=== PATIENT | male | born 2005 | race Caucasian/White ===

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

== ENCOUNTER 2024-02-17 18:00 | Emergency (ER) | payer OTHER, SELFPAY ==
[2024-02-17 18:12] VITALS: BP 142/66; PULSE 101; RESP 18; TEMP 36.4; O2SAT 100
--- NOTE | 2024-02-17 18:26 | ED.GENADULT ---
HPI - General Adult General Chief complaint: Neck Pain/Injury Stated complaint: Neck Swelling Time Seen by Provider: 02/17/24 18:18 Source: patient and RN notes reviewed Mode of arrival: ambulatory Limitations: no limitations History of Present Illness HPI narrative: Patient presents today complaining of swelling of his thyroid gland. States that a thyroid cyst was found incidentally on a next xray approx 1 year ago. Reports that over the last 3 days he has felt that the cyst is growing. Denies shortness of breath or difficulty swallowing. Denies recent illness. Related Data Home Medications Medication Instructions Recorded Confirmed bupropion HCl 300 mg 24 hr tablet, 300 mg PO DAILY 02/17/24 02/17/24 extended release clonidine HCl 0.2 mg tablet 0.2 mg PO DAILY 02/17/24 02/17/24 lisdexamfetamine 40 mg capsule 40 mg PO DAILY 02/17/24 02/17/24 (Vyvanse) Allergies Allergy/AdvReac Type Severity Reaction Status Date / Time Penicillins AdvReac Mild Hives Verified 02/17/24 18:02 Review of Systems Review of Systems: CONSTITUTIONAL: Denies body aches, fever, chills, or sweats. EYES: Denies visual changes, redness, or discharge. ENT: Denies rhinorrhea, congestion, sore throat, or otalgia. +growing thyroid gland CARDIOVASCULAR: Denies chest pain, palpitations, or edema. RESPIRATORY: Denies cough or dyspnea. GASTROINTESTINAL: Denies abdominal pain, nausea, vomiting, or diarrhea. GENITOURINARY: Denies dysuria or hematuria. SKIN: Denies rash, itching, or wounds. MUSCULOSKELETAL: Denies back pain, joint pain, or myalgia. NEUROLOGIC: Denies headache, numbness, tingling, or weakness. PSYCH: Denies depression or anxiety. PMFSH Comments At time of signature, I have reviewed and agree with nursing past medical, surgical, social and family history unless otherwise noted. Please see nursing chart for further information. There is no relevant family history pertinent to the presenting complaint Exam Narrative: GENERAL: Well-appearing, well-nourished, and in no acute distress. HEAD: Normocephalic, atraumatic. EYES: EOMI. No redness or drainage. Conjunctivae normal. ENT: Mucous membranes pink and moist. Throat normal. Uvula midline. NECK: Normal AROM. Supple. No lymphadenopathy. Mild tenderness to the left thyroid area. CHEST: No respiratory distress. EXTREMITIES: Normal range of motion. No edema. SKIN: Warm, dry, no rash. Capillary refill normal. Normal skin turgor. NEURO: No focal deficits. Alert and oriented x3. Gait steady. PSYCH: Normal affect. No signs of depression or anxiety. Course Course Level of Care: Express Care Visit Vital Signs Vital signs: Vital Signs Temperature 97.5 F L 02/17/24 18:12 Pulse Rate 101 H 02/17/24 18:12 Respiratory Rate 18 02/17/24 18:12 Blood Pressure 142/66 H 02/17/24 18:12 Pulse Oximetry 100 02/17/24 18:12 Oxygen Delivery Room Air 02/17/24 18:12 Temperature 97.5 F L 02/17/24 18:12 Pulse Rate 101 H 02/17/24 18:12 Respiratory Rate 18 02/17/24 18:12 Blood Pressure 142/66 H 02/17/24 18:12 Pulse Oximetry 100 02/17/24 18:12 Oxygen Delivery Room Air 02/17/24 18:12 Reviewed Medical Decision Making MDM Narrative Medical decision making narrative: Recommend patient call his PCP and schedule a follow-up visit for possible ultrasound/blood work. Anticipatory guidance given. Differential Diagnosis Differential Diagnosis: thyroid cyst, hyperthyroidism, hypothyroidism Vital Signs Vital Signs: Vital Signs Temperature 97.5 F L 02/17/24 18:12 Pulse Rate 101 H 02/17/24 18:12 Respiratory Rate 18 02/17/24 18:12 Blood Pressure 142/66 H 02/17/24 18:12 Pulse Oximetry 100 02/17/24 18:12 Oxygen Delivery Room Air 02/17/24 18:12 Temperature 97.5 F L 02/17/24 18:12 Pulse Rate 101 H 02/17/24 18:12 Respiratory Rate 18 02/17/24 18:12 Blood Pressure 142/66 H 02/17/24 18:12 Pulse Oximetry 100 02/17/24 18:12
== END 2024-02-17 18:28 | disposition home or self-care (01) ==
PROVIDERS: Emergency Provider Nurse Practitioner
DX: E07.9 Disorder of thyroid, unspecified (principal); F90.9 Attention-deficit hyperactivity disorder, unspecified type; F41.9 Anxiety disorder, unspecified; F32.A Depression, unspecified
CPT/HCPCS: 99211; G0463

== ENCOUNTER 2024-11-12 06:37 | Outpatient (CLI) | payer OTHER, SELFPAY ==
--- NOTE | ~2024-11-12 | CT_ITS ---
EXAMINATION: CT soft tissue neck w con DATE: 11/12/2024 07:54 INDICATION: Thyroglossal duct cyst. TECHNIQUE: Computed tomography (CT) of the neck was performed with 75 mL Omnipaque-350 intravenous co ntrast. Automated exposure control and iterative reconstruction technique were employed. The dose-joe gth product was 540.29 mGy-cm. COMPARISON: None FINDINGS: There are no pathologically enlarged lymph nodes. The cervical carotid arteries and vertebr al arteries are normal. The thyroid is normal. There is a 15 x 9 mm mass anterior to the thyroid cart ilage at the midline and involving the left strap muscles that is hypodense to muscle. There is kypho sis of cervical spine. IMPRESSION: 1. 15 x 9 mm mass anterior to the thyroid cartilage at the midline and involving the left strap muscl es, consistent with a thyroglossal duct cyst. Reviewed, dictated and finalized at location A. ATIONAL RESOURCE COORDINATOR IMPRESSION: 1. 15 x 9 mm mass anterior to the thyroid cartilage at the midline and involvin g the left strap muscles, consistent with a thyroglossal duct cyst.
--- OUTSIDE RECORDS SUMMARY | 2024-11-19 06:13 | XMS_ITS | Clinical Summary ---
Author Organization [facility] Address [address] [place] [address]. [place] [address] [place] [address] Care Team Providers Care Department Chair Name Role Phone Toney Mccracken MD Primary Care Provider [phone] Allergies Active Allergy Reactions Criticality Noted Date Comments Penicillins Hives Medium 07/05/2017 Young child Medications Vitamin D-3 125 mcg TabIndications:Lo w vitamin D level Take 1 tablet (125 mcg total) by mouth daily. 30 tablet 11 4 Active cloNIDine (CATAPRES) 0.2 MG tabletIndications :Attention deficit disorder (ADD) without hyperactivity Take 1 tablet (0.2 mg total) by mouth nightly as needed. 90 tablet 3 4 Active buPROPion XL (WELLBUTRIN XL) 300 MG 24 hr tabletIndications :Annual physical exam Take 1 tablet (300 mg total) by mouth every morning. 30 tablet 11 4 Active acetaminophen (TYLENOL) 325 MG tablet Take 2 tablets (650 mg total) by mouth every 6 (six) hours as needed for Pain. 30 tablet 5 11/22/19 25 Active traMADol (ULTRAM) 50 MG tabletIndications :Acute Pain < 7 Day Supply Take 1 tablet (50 mg total) by mouth every 6 (six) hours as needed for Pain (significan t pain). Indications : Acute Pain < 7 Day Supply 24 tablet 5 11/21/19 25 Active clindamycin (CLEOCIN) 300 MG capsule Take 1 capsule (300 mg total) by mouth 3 (three) times daily for 7 days. 21 capsule 5 11/22/19 25 Active docusate sodium (COLACE) 100 MG capsule Take 1 capsule (100 mg total) by mouth daily for 6 days. 6 capsule 5 11/21/19 25 Active lisdexamfetamine (VYVANSE) 40 MG capsuleIndication s:Attention deficit disorder (ADD) without hyperactivity Take 1 capsule (40 mg total) by mouth every morning. Patient may have either generic or brand 30 capsule 4 11/08/20 24 Discontinu ed(Error) Active Problems No known active problems Encounters Date Type Department Care Team Description 11/15/2024 10:47 AM LABOR ARBITRATOR Anesthesia Event [facility] [place] [address] Taniya Watson MD Jarvis, Brittany L, AUTOMATED MANUFACTURING INSTRUCTOR 11/15/2024 10:10 AM LABOR ARBITRATOR - 11/15/2024 12:30 PM LABOR ARBITRATOR Surgery [facility] [place] [address] Delfin Holguin MD EXCISION OF THYROGLOSSAL DUCT CYST 11/15/2024 8:00 AM LABOR ARBITRATOR - 11/15/2024 4:10 PM LABOR ARBITRATOR Hospital Encounter [facility] [place] [address] Delfin Holguin MD Discharge Disposition: Home or Self Care (Routine Discharge) 11/15/2024 Travel 11/13/2024 Travel 11/08/2024 Travel from Last 3 Months Immunizations Name Administration Dates Next Due Afluria 6-35 months (pre-jean led syringe IIV4) 08/30/2019 DTaP (Daptacel) 01/03/2010, 6,05/19/2005,03/17,01/14/2005 HPV GARDASIL 9-VALENT 08/23/2018 HPV4 (Gardasil) 03/02/2019 Hepatitis A (Havrix 1440 El.U) 02/24/2007,2005 Hepatitis B (Generic: Adult) 05/19/2005,03/17/20 05,01/14/2005 Hib (PedvaxHIB)3 Dose 06/15/2006,03/17/2005,03/01/2005 Influenza (Generic) 08/25/2020,07/26/2014,2008 Influenza Adult (Generic) 09/12/2022,,08/17/2020,08/23,09/02/2017 MMR (MMRII) 01/03/2010,11/22/2005 Meningococcal (MenQuadfi) 11/04/2021 Meningococcal (Menactra) 07/05/2016 Pneumococcal (Prevnar 13) 11/22/2005,04/2005,03/17/2005,01/14 Polio IPV (Ipol) 01/03/2010, 5,03/17/2005,01/14 Tdap (Generic) 07/05/2016 Varicella (Varivax) 01/03/2010,11/22/2005 Social History Tobacco Use Types Packs/Day Years Used Date Smoking Tobacco: Never Passive Smoke Exposure: Never Smokeless Tobacco: Never Tobacco Cessation:Counseling Given: No Alcohol Use Standard Drinks/Week Comments Never 0 (1 standard drink = 0.6 oz pur e alcohol) PHQ-2 Answer Date Recorded Patient Health Questionnaire-2 Score 3 04/16/2024 Sex and Gender Information Value Date Recorded Sex Assigned at Not on file Legal Sex Male 6:56 PM CDT Gender Identity Not on file Sexual Orientation Not on file Last Filed Vital Signs Vital Sign Reading Time Taken Comments Blood Pressure 126/69 11/15/2024 4:00 PM LABOR ARBITRATOR Pulse 92 11/15/2024 4:00 PM LABOR ARBITRATOR Temperature 36.7 ??C (98.1 ??F) 11/15/2024 4:00 PM CS T Respiratory Rate 16 11/15/2024 4:00 PM LABOR ARBITRATOR Oxygen Saturation 98% 11/15/2024 4:00 PM LABOR ARBITRATOR Inhaled Oxygen Concentration - - Weight 91.4 kg (201 lb 8 oz) 11/15/2024 8:20 AM LABOR ARBITRATOR Height 180.3 cm (5' 11 ) 11/08/2024 2:25 PM LABOR ARBITRATOR Body Mass Index 28.1 11/08/2024 2:25 PM LABOR ARBITRATOR Plan of Treatment Health Maintenance Due Date Last Done Comments COVID-19 Vaccine ( season) 2024 10/25/2021, 03/08/2021, 02/13/2021 Influenza Adult (#1) 2024 09/12/2022, 08/08/2021, 08/25/2020, Additional history exists Annual Physical 04/16/2025 04/16/2024, 01/12/2023 DTaP, Tdap and Td Vaccines (7 - Td or Tdap) 07/05/2026 07/05/2016, 01/03/2010, 06/15/2006, Additional history exists Hepatitis B Vaccines Completed 05/19/2005, 03/17/2005, 01/14/2005 Pneumococcal Vaccine: Pediatrics (0 to 5 Years) and At-Risk Patients (6 to 64 Years) Completed 11/22/2005, 05/19/2005, 03/17/2005, Additional history exists HPV Vaccines Completed 03/02/2019, 08/23/2018 Meningococcal Vaccine Completed 11/04/2021, 016 Hepatitis C Completed 04/16/2024 RSV Immunizations Under 20 Months Aged Out No longer eligible based on patient's age to complete this topic Procedures Procedure Name Priority Date/Time Associated Diagnosis Comments EXCISION THYROGLOSSAL DUCT CYST 11/15/2024 10:47 AM LABOR ARBITRATOR THYROGLOSSAL DUCT CYTS Q89.2 Case Notes SCHED BY FAX 10/22/2024 LCS PHONE ASSESS PATHOLOGY Routine 11/15/2024 12:00 AM LABOR ARBITRATOR HEPATITIS C ANTIBODY Routine 04/16/2024 1:09 PM CDT Attention deficit disorder (ADD) without hyperactivity Annual physical exam Neck pain Thyroglossal duct cyst from Last 3 Months or Most Recently Relevant to Health Maintenance Results * HEPATITIS C ANTIBODY (04/16/2024 1:09 PM CDT) HEPATITIS C AB NON-REACTI VE NON-REACT BECKY 04/16/2024 9:55 PM CDT [facility] Comment: ANTIBODIES TO HCV NOT DETECTED. DOES NOT EXCLUDE THE POSSIBILITY OF EXPOSURE TO HCV. 04/16/2024 1:09 PM CDT Toney Mccracken MD LABORATORY Final Result [facility] [address] [place] [address], [place] [phone] [id number] from Last 3 Months or Most Recently Relevant to Health Maintenance Insurance GENERIC - COMMERCIAL Care Teams Department Chair Relationship Specialty Start Date End Date Toney Mccracken MD [address] [address] PCP - General FAMILY PRACTICE 12/20/22
--- OUTSIDE RECORDS SUMMARY | 2024-11-19 06:13 | XMS_ITS | Encounter Summary ---
Author Organization [facility] Address [address] [place] [address]. [place], [place] [id number] [place] [id number] Care Team Providers Care Donation Worker Name Role Phone Toney Martinez MD Primary Care Provider [phone] Reason for Referral * Imaging (Routine) - Closed Specialty Diagnoses / Procedures Referred By Makenzie moya Referred To Contact RADIOLOGY Diagnoses Thyroglossal duct cyst Procedures US SOFT TISS HEAD OR NECK US SOFT TISS NECK BX Toney Martinez MD [address] '[place] [address] Phone: tel:[phone] fax: Referral ID Status Reason Start Date Expiration Date Visits Re quested Visits Authorized [id number] Closed 02/20/2024 02/19/2025 1 1 Encounter Details Date Type Department Care Team (Late st Contact Info) Description 02/20/2024 Orders Only [facility] Family [facility] - [place] [address] [place] [address] Toney Martinez MD [address] '[place] [address] Social History Tobacco Use Types Packs/Day Years Used Date Smoking Tobacco: Never Smokeless Tobacco: Never Alcohol Use Standard Drinks/Week Comments Never 0 (1 standard drink = 0.6 oz pur e alcohol) PHQ-2 Answer Date Recorded Patient Health Questionnaire-2 Score 1 04/15/2023 Sex and Gender Information Value Date Recorded Sex Assigned at Not on file Legal Sex Male 6:56 PM CDT Gender Identity Not on file Sexual Orientation Not on file documented as of this encounter Plan of Treatment Not on file documented as of this encounter Results * US SOFT TISS HEAD OR NECK (03/26/2024 7:37 AM CDT) Anatomical Region Laterality Modality Head, Neck Ultrasound 03/26/2024 11:3 8 AM CDT Impressions 03/26/2024 11:50 AM CDT IMPRESSION: Thyroglossal duct cyst is approximately 1.1 x 1.6 x 3.4 cm on current sonogram with low-level internal echoes and single thin septation. On 2022 MRI, it is approximately 1.3 x 1.5 x 3.4 cm. Ordered By: TONEY MARTINEZ Interpreted By: Trevin Perez, 03/26/2024 11:38 AM Narrative 03/26/2024 11:50 AM CDT IMAGING STUDIES: US SOFT TISS HEAD OR NECK ? DATE: ??03/26/2024 7:04 AM HISTORY: ??Thyroglossal cyst follow up ? 18-year-old male. Thyroglossal cyst. Follow-up. COMPARISON: ??MRI cervical spine without contrast 05/13/2023. DISCUSSION: Targeted ultrasound of the superior anterior neck. It is reportedly palpable. Hypoechoic lesion at midline in the anterior superior neck is 1.1 cm AP by 1.6 cm transverse by at least 3.4 cm craniocaudal dimension consistent with a history of thyroglossal duct cyst. Low level echoes and thin septation. On MRI 05/13/2023, it is approximately 1.3 cm AP by 1.5 cm transverse dimension on axial image 21 series 5 and approximately 1 cm AP by 3.4 cm craniocaudal dimension on sagittal image 7 series 6. Superior and toward the left of the aforementioned lesion is an approximately 6 x 5.6 x 3.7 mm hypoechoic lesion with no internal echoes and likely a cyst. Slightly deeper and toward the right is a 4.1 mm cystic lesion. Procedure Note Trevin Perez MD - 03/26/2024 IMAGING STUDIES: US SOFT TISS HEAD OR NECKDATE: 03/26/2024 7:04 AM HISTORY: Thyroglossal cyst follow up 18-year-old male. Thyroglossalcyst. Follow- up. COMPARISON: MRI cervical spine without contrast 05/13/2023. DISCUSSION: Targeted ultrasound of the superior anterior neck. It is reportedlypalpable. Hypoechoic lesion at midline in the anterior superior neck is 1.1 cm AP by1.6 cm transverse by at least 3.4 cm craniocaudal dimension consistentwith a history of thyroglossal duct cyst. Low level echoes and thinseptation. On MRI 05/13/2023, it is approximately 1.3 cm AP by 1.5 cm transversedimension on axial image 21 series 5 and approximately 1 cm AP by 3.4 cmcraniocaudal dimension on sagittal image 7 series 6. Superior and toward the left of the aforementioned lesion is anapproximately 6 x 5.6 x 3.7 mm hypoechoic lesion with no internal echoesand likely a cyst. Slightly deeper and toward the right is a 4.1 mm cysticlesion. IMPRESSION: Thyroglossal duct cyst is approximately 1.1 x 1.6 x 3.4 cm on currentsonogram with low-level internal echoes and single thin septation. On 2022MRI, it is approximately 1.3 x 1.5 x 3.4 cm. 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
--- OUTSIDE RECORDS SUMMARY | 2024-11-19 06:13 | XMS_ITS | Encounter Summary ---
Author Organization [facility] Address [address] [place] [address]. [place], [place] [address] [place] [address] Care Team Providers Care Voltage Inspector Name Role Phone Toney Mccracken MD Primary Care Provider [phone] Reason for Visit * Reason Comments Follow Up Vyvanse f/u, working well aside from GI issues, Clonidine working well too Encounter Details Date Type Department Care Team (Late st Contact Info) Description 01/21/2023 12:40 PM WASHER CARCASS Office Visit [facility] Family and Sports Medicine - [place] [address] [place] [address] Toney Mccracken MD [address] [facility] [address] [place] [address] Follow Up (Vyvanse f/u, working well aside from GI issues, Clonidine working well too) Social History Tobacco Use Types Packs/Day Years Used Date Smoking Tobacco: Never Smokeless Tobacco: Never Tobacco Cessation:Counseling Given: No Alcohol Use Standard Drinks/Week Comments Never 0 (1 standard drink = 0.6 oz pur e alcohol) PHQ-2 Answer Date Recorded Patient Health Questionnaire-2 Score 4 01/12/2023 Sex and Gender Information Value Date Recorded Sex Assigned at Not on file Legal Sex Male 6:56 PM CDT Gender Identity Not on file Sexual Orientation Not on file COVID-19 Exposure Response Date Recorded In the last 10 days, have yo u been in contact with someone who was confirmed or suspected to have Coronavirus/COVID-19? No / Unsure 01/21/2023 12:12 PM WASHER CARCASS documented as of this encounter Last Filed Vital Signs Vital Sign Reading Time Taken Comments Blood Pressure 123/86 01/21/2023 12:31 PM WASHER CARCASS Pulse 103 01/21/2023 12:31 PM WASHER CARCASS Temperature 36.7 ??C (98.1 ??F) 01/21/2023 12:[address] Respiratory Rate 16 01/21/2023 12:31 PM WASHER CARCASS Oxygen Saturation 100% 01/21/2023 12:31 PM WASHER CARCASS Inhaled Oxygen Concentration - - Weight 88 kg (194 lb) 01/21/2023 12:31 PM WASHER CARCASS Height 175.3 cm (5' 9 ) 01/21/2023 12:31 PM WASHER CARCASS Body Mass Index 28.65 01/21/2023 12:31 PM WASHER CARCASS Body Mass Index Percentile 94.30% 01/21/2023 12: 31 PM WASHER CARCASS Growth Chart: [facility] (Boys, 2-2 0 Years) documented in this encounter Progress Notes * Toney Mccracken MD - 01/21/2023 12:40 PM CST Images from the original note were not included. Primary and Specialty Care Taj Encounter Date: 01/21/2023 Reason for visit: Follow Up (Vyvanse f/u, working well aside from GI issues, Clonidine working well too) History of Present Illness: Reji Strange is a 17-year-old male with ADHD, predominantly inattentive type who is here today for a medication recheck. The patient feels that the current medication is working well. The patient has the following concerns: none. The patient is compliant with medication(s). ADHD (chronic condition)- Pt currently takes Vyvanse 50mg qd. Pt denies any new side effects and reports compliance with this regimen. Pt states this regimen is working well for them. Pt denies any SI/HI/AH/VH. Insomnia (chronic condition)- Pt currently takes no medication. Pt states he has been tossing and turning so bad he hardly sleeps. Pt states he is not big on caffeine and tries not drink it at night.No other factors at this time. Patient denies having any fever, chills, N/V/D, CP, SOB and all other medical complaint at this time. SHx pt is a nonsmoker of cigarettes. Review of Systems Constitutional: Negative for chills and fever. HENT: Negative for congestion and sore throat. Eyes: Negative for pain and visual disturbance. Cardiovascular: Negative for chest pain and leg swelling. Respiratory: Negative for cough and shortness of breath. Endocrine: Negative for polydipsia and polyuria. Skin: Negative for itching and rash. Musculoskeletal: Negative for joint swelling and muscle cramps. Gastrointestinal: Negative for constipation and diarrhea. Genitourinary: Negative for bladder incontinence and dysuria. Neurological: Negative for difficulty with concentration and dizziness. Psychiatric/Behavioral: Negative for hallucinations and memory loss. +ADHD Medical History: History reviewed. No pertinent past medical history. Surgical History: History reviewed. No pertinent surgical history. Family History: No family history on file. Social History: Social History Socioeconomic History ??? Marital status: Unknown Tobacco Use ??? Smoking status: Never ??? Smokeless tobacco: Never Vaping Use ??? Vaping Use: Never used Substance and Sexual Activity ??? Alcohol use: Never ??? Drug use: Never Medications: Current Outpatient Medications: ??? buPROPion XL (WELLBUTRIN XL) 300 MG 24 hr tablet, , Disp: , Rfl: ??? cloNIDine (CATAPRES) 0.2 MG tablet, Take 1 tablet (0.2 mg total) by mouth nightly as needed., Disp: 30 tablet, Rfl: 5 ??? lisdexamfetamine (VYVANSE) 30 MG capsule, Take 1 capsule (30 mg total) by mouth every morning.,Disp: 30 capsule, Rfl: 0 Allergies: Allergies Allergen Reactions ??? Penicillins Hives Young child Vitals: Filed Vitals: 01/21/23 1231 BP: 123/86 Pulse: (!) 103 Resp: 16 Temp: 98.1 ??F (36.7 ??C) SpO2: 100% Weight: 88 kg (194 lb) Height: 5' 9 (1.753 m) Body mass index is 28.65 kg/m??. Physical Exam Constitutional: Appearance: Normal appearance. HENT: Head: Normocephalic and atraumatic. Right Ear: External ear normal. Left Ear: External ear normal. Nose: Nose normal. Eyes: Extraocular Movements: Extraocular movements intact. Conjunctiva/sclera: Conjunctivae normal. Cardiovascular: Rate and Rhythm: Normal rate and regular rhythm. Pulmonary: Effort: Pulmonary effort is normal. Breath sounds: Normal breath sounds. Abdominal: General: Abdomen is flat. Musculoskeletal: General: Normal range of motion. Cervical back: Normal range of motion and neck supple. Skin: General: Skin is warm and dry. Neurological: Mental Status: She is alert and oriented to person, place, and time. Gait: Gait normal. Psychiatric: Behavior: Behavior normal. Thought Content: Thought content normal. Diagnoses/Impression: Encounter Diagnose(s) ICD-10-CM ICD-9-CM SNOMED CT(R) 1. Attention deficit disorder (ADD) without hyperactivity F98.8 314.00 ATTENTION DEFICIT HYPERACTIVITY DISORDER, PREDOMINANTLY INATTENTIVE TYPE Patient is well controlled on current dose of medication and has no problems with insomnia, decreased appetite, increased anxiety or motor tics. They may have 2 refills prior to their next appointment in 3 months. Recommendations and Plan: He will continue his current medications. Renewal given as per [facility]. He will follow-up in 3 months,sooner if any problems. In compliance with Act 266, I have researched the ePDMP and have found no concerning issues. The patient was educated on the importance of adhering to treatment regimen in terms of their controlled substance and they have been counseled on the proper disposal of unused medication. I personally spent a total of 30 minutes on the day of the encounter. This includes [id number]-ov-[id number] and erw-vfyj-la-face time I provided on the day of the encounter & excludes time spent performing separately reportable services. TONEY MCCRACKEN MD 01/21/2023 ER CARCASS documented in this encounter Plan of Treatment Not on file documented as of this encounter Visit Diagnoses Diagnosis Attention deficit disorder (ADD) without hyperactivity- Primary documented in this encounter Additional Health Concerns Assessment Noted Time PHQ-9 Depression Total Score: 16 023 1:00 PM WASHER CARCASS documented as of this encounter Care Teams Voltage Inspector Relationship Specialty Start Date End Date Toney Mccracken MD [address] [address] PCP - General FAMILY PRACTICE 12/20/22 documented as of this encounter
--- OUTSIDE RECORDS SUMMARY | 2024-11-19 06:13 | XMS_ITS | Encounter Summary ---
Author Organization [facility] Address [address] [place] [address]. [place], [place] [address] [place] [address] Care Team Providers Care Pharmacy Consultant Name Role Phone Toney Mccracken MD Primary Care Provider [phone] Encounter Details Date Type Department Care Team (Late st Contact Info) Description 04/16/2024 1:00 PM CDT Laboratory Only [facility] Family and Sports Medicine - [place] [address] [place] [address] Toney Mccracken MD [address] [address] Social History Tobacco Use Types Packs/Day Years Used Date Smoking Tobacco: Never Passive Smoke Exposure: Never Smokeless Tobacco: Never Alcohol Use Standard [...] on file documented as of this encounter Progress Notes * Arin Tracey - 04/16/2024 1:00 PM CDTAddended by: ARIN TRACEY on: 04/16/2024 07:24 PM Modules accepted: Orders documented in this encounter Plan of Treatment Not on file documented as of this encounter Procedures Procedure Name Priority Date/Time Associated Diagnosis Comments TSH W/REFLEX Routine 04/16/2024 1:09 PM CDT Attention deficit disorder (ADD) without hyperactivity Annual physical exam Neck pain Thyroglossal duct cyst THYROID PEROXIDASE ANTIBODY Routine 04/16/2024 1:09 PM CDT Attention deficit disorder (ADD) without hyperactivity Annual physical exam Neck pain Thyroglossal duct cyst COMPREHENSIVE METABOLIC PANEL Routine 04/16/2024 1:09 PM CDT Attention deficit disorder (ADD) without hyperactivity Annual physical exam Neck pain Thyroglossal duct cyst LIPID PANEL Routine 04/16/2024 1:09 PM CDT Attention deficit disorder (ADD) without hyperactivity Annual physical exam Neck pain Thyroglossal duct cyst HEPATITIS C ANTIBODY Routine 04/16/2024 1:09 PM CDT Attention deficit disorder (ADD) without hyperactivity Annual physical exam Neck pain Thyroglossal duct cyst CBC W/DIFF AUTOMATED Routine 04/16/2024 1:09 PM CDT Attention deficit disorder (ADD) without hyperactivity Annual physical exam Neck pain Thyroglossal duct cyst THYROXINE, FREE (FT4) Routine 04/16/2024 1:09 PM CDT Attention deficit disorder (ADD) without hyperactivity Annual physical exam Neck pain Thyroglossal duct cyst VITAMIN D, 25 OH Routine 04/16/2024 1:09 PM CDT Attention deficit disorder (ADD) without hyperactivity Annual physical exam Neck pain Thyroglossal duct cyst THYROGLOBULIN PANEL Routine 04/16/2024 1 :08 PM CDT Annual physical exam Attention deficit disorder (ADD) without hyperactivity Neck pain Thyroglossal duct cyst TRIIODOTHYRONINE TOTAL , TT-3 Routine 04/16/2024 1:08 PM CDT Attention deficit disorder (ADD) without hyperactivity Annual physical exam Neck pain Thyroglossal duct cyst COLLECTION VENOUS BLOOD VENIPUNCTURE Routine 04/16/2024 1:07 PM CDT Annual physical exam documented in this encounter Results * (ABNORMAL) CBC W/DIFF AUTOMATED (04/16/2024 1:09 PM CDT) [facility] WBC 4.18 4.00 - 10.80 x10'3/uL 04/16/2024 8:21 PM CDT [facility] RBC 5.00 4.50 - 6.10 x10'6/uL 04/16/2024 8:21 PM CDT [facility] HGB 14.7 13.0 - 18.0 G/DL 04/16/2024 8:21 PM CDT [facility] HCT 44.1 37.0 - 52.0 % 04/16/2024 8:21 PM CDT [facility] MCV 88.2 78.0 - 100.0 FL 04/16/2024 8:21 PM CDT [facility] MCH 29.4 27.0 - 31.0 PG 04/16/2024 8:21 PM CDT [facility] MCHC 33.3 33.0 - 36.0 G/DL 04/16/2024 8:21 PM CDT [facility] RDW 11.6 11.5 - 14.5 % 04/16/2024 8:21 PM CDT [facility] PLT 202 150 - 350 x10'3/uL 04/16/2024 8:21 PM CDT [facility] MPV 11.5(H) 7.4 - 10.4 FL 04/16/2024 8:21 PM CDT [facility] DIFFERENTIAL TYPE AUTOMATED DIFFERENTIAL 04/16/2024 8:21 PM CDT [facility] NEUTROPHILS % 51.6 % 04/16/2024 8:21 PM CDT [facility] LYMPHOCYTES % 38.0 % 04/16/2024 8:21 PM CDT [facility] MONOCYTES % 8.6 % 04/16/2024 8:21 PM CDT [facility] EOSINOPHILS % 1.4 % 04/16/2024 8:21 PM CDT [facility] BASOPHILS % 0.2 % 04/16/2024 8:21 PM CDT [facility] IMMATURE GRANS % 0.2 % 04/16/2024 8:21 PM CDT [facility] ABS. NEUTROPHILS 2.15 1.60 - 8.30 x10'3/uL 04/16/2024 8:21 PM CDT [facility] ABS. LYMPHOCYTES 1.59 0.80 - 4.70 x10'3/uL 04/16/2024 8:21 PM CDT [facility] ABS. MONOCYTES 0.36 0.00 - 1.50 x10'3/uL 04/16/2024 8:21 PM CDT [facility] ABS. EOSINOPHILS 0.06 0.00 - 0.40 x10'3/uL 04/16/2024 8:21 PM CDT [facility] ABS. BASOPHILS 0.01 0.00 - 0.20 x10'3/uL 04/16/2024 8:21 PM CDT [facility] ABS. IMMATURE GRANULOCYTES 0.01 0.00 - 0.03 x10'3/uL 04/16/2024 8:21 PM CDT [facility] 04/16/2024 1:09 PM CDT us Toney Mccracken MD LABORATORY Final Result [facility] [address] [place] [address], [place] [phone] * (ABNORMAL) COMPREHENSIVE METABOLIC PANEL (04/16/2024 1:09 PM CDT) SODIUM S/P/B 143 136 - 145 MMOL/L 04/17/2024 1:16 PM T [facility] POTASSIUM S/P/B 4.2 3.5 - 5.1 MMOL/L 04/17/2024 1:16 PM T [facility] CHLORIDE S/P/B 104 98 - 107 MMOL/L 04/17/2024 1:16 PM CDT [facility] CO2 27.7 21 - 32 MMOL/L 04/17/2024 1:16 PM CDT [facility] GLUCOSE 50(L) 70 - 99 MG/DL 04/17/2024 1:16 PM T [facility] Comment:RESULT VERIFIED BUN 14 7 - 18 MG/DL 04/17/2024 1:16 PM T [facility] CREATININE S/P/B 0.80 0.70 - 1.30 MG/DL 04/17/2024 1:16 PM T [facility] CALCIUM S/P/B 9.6 8.4 - 10.5 MG/DL 04/17/2024 1:16 PM T [facility] BILIRUBIN TOTAL S/P/B 1.3(H) 0.2 - 1.0 MG/DL 04/17/2024 1:16 PM T [facility] ALKALINE PHOSPHATASE S/P/B 62 45 - 115 U/L 04/17/2024 1:16 PM CDT [facility] AST 10(L) 15 - 37 U/L 04/17/2024 1:16 PM CDT [facility] ALT 25 16 - 63 U/L 04/17/2024 1:16 PM CDT [facility] TOTAL PROTEIN S/P/B 8.1 6.4 - 8.2 G/DL 04/17/2024 1:16 PM CDT [facility] ALBUMIN S/P/B 4.8 3.4 - 5.0 G/DL 04/17/2024 1:16 PM CDT [facility] ANION GAP 11.3 5 - 15 MMOL/L 04/17/2024 1:16 PM CDT [facility] Comment:REFERENCE RANGE NOT ESTABLISHED OSMOLALITY (CALC) 294 MOSM/KG 024 1:16 PM CDT [facility] Comment:REFERENCE RANGE NOT ESTABLISHED GFR ESTIMATE >90 >90 ML/MIN/1. 73 M2 04/17/2024 1:16 PM CDT [facility] GFR NOTES GFR REFERENCE S: 04/17/2024 1:16 PM CDT [facility] Comment: THE ESTIMATED GFR IS CALCULATED USING THE 2020 CKD-EPI EQUATION. THE FOLLOWING CATEGORIES FOR GRADING RENAL FUNCTION ARE RECOMMENDED BY THE INTERNATIONAL SOCIETY OF NEPHROLOGY (KDIGO 2012 CLINICAL PRACTICE GUIDELINE). G1,NORMAL OR HIGH: >89 ml/min/1.73 m2 G2,MILDLY DECREASED: 60-89 ml/min/1.73 m2 G3A,MILDLY TO MODERATELY DECREASED: 45-59 ml/min/1.73 m2 G3B,MODERATELY TO SEVERELY DECREASED: 30-44 ml/min/1.73 m2 G4,SEVERELY DECREASED: 15-29 ml/min/1.73 m2 G5,KIDNEY FAILURE: <15 ml/min/1.73 m2 04/16/2024 1:09 PM CDT Toney Mccracken MD LABORATORY Final Result [facility] [address] [place] [address], [place] [phone] * LIPID PANEL (04/16/2024 1:09 PM CDT) CHOLESTEROL 151 <200 MG/DL 04/17/2024 1:16 PM CDT [facility] TRIGLYCERIDES 61 <150 MG/DL 04/17/2024 1:16 PM CDT [facility] HDL 58 >40 MG/DL 04/17/2024 1:16 PM CDT [facility] LDL-C 81 <100 MG/DL 04/17/2024 1:16 PM CDT [facility] VLDL CALCULATION 12 5 - 28 MG/DL 04/17/2024 1:16 PM CDT [facility] CHOL/HDL RATIO 2.6 0.0 - 4.0 04/17/2024 1:16 PM CDT [facility] LDL/HDL 1.4 0.41 - 2.13 04/17/2024 1:16 PM CDT [facility] NON HDL CHOLESTEROL 93 <140 MG/DL 04/17/2024 1:16 PM CDT [facility] 04/16/2024 1:09 PM CDT Toney Mccracken MD LABORATORY Final Result Performing Organization Address City/[facility]/ZIP Co de Phone Number [facility] [address] [place] [phone], * THYROXINE, FREE (FT4) (04/16/2024 1:09 PM CDT) FREE T4 0.96 0.78 - 1.34 NG/DL 04/17/2024 1:16 PM CDT [facility] 04/16/2024 1:09 PM CDT Toney Mccracken MD LABORATORY Final Result [address] [address], * TSH W/REFLEX (04/16/2024 1:09 PM CDT) TSH 2.644 0.516 - 4.130 uIU/ML 04/17/2024 1:16 PM CDT [facility] 04/16/2024 1:09 PM CDT Toney Mccracken MD LABORATORY Final Result Performing Organization Address [facility] Co de Phone Number [facility] [address] [place] [address], [place] [phone] * (ABNORMAL) VITAMIN D, 25 OH (04/16/2024 1:09 PM CDT) [facility] VITAMIN D 25 HYDROXY TOTAL S/P/B 23.7(L) 30 - 100 NG/ML 04/17/2024 1:16 PM CDT [facility] Comment: ? DEFICIENT ??<20 ?INSUFFICIENT 20-30 ?SUFFICIENT 30-100 04/16/2024 1:09 PM CDT Toney Mccracken MD LABORATORY Final Result Performing Organization Address [facility] de Phone Number [facility] [address] [place] [address], [place] [phone] * HEPATITIS C ANTIBODY (04/16/2024 1:09 PM CDT) [facility] HEPATITIS C AB NON-REACTI VE NON-REACT BECKY 04/16/2024 9:55 PM CDT [facility] Comment: ANTIBODIES TO HCV NOT DETECTED. DOES NOT EXCLUDE THE POSSIBILITY OF EXPOSURE TO HCV. 04/16/2024 1:09 PM CDT Toney Mccracken MD LABORATORY Final Result Performing Organization Address City/[facility] Co de Phone Number [facility] [address] [place] [address], [place] [phone] * THYROID PEROXIDASE ANTIBODY (04/16/2024 1:09 PM CDT) THYROID PEROXIDASE MICROSOMAL AB <4 IU/ML 04/17/2024 2:07 PM CDT [facility] Comment: NEGATIVE: < 25 IU/ML EQUIVOCAL: 25 to 35 IU/ML POSITIVE: > 35 IU/ML 04/16/2024 1:09 PM CDT us Toney Mccracken MD LABORATORY Final Result [facility] [address] [place] [address], [id number] * THYROGLOBULIN PANEL (04/16/2024 1:08 PM CDT) THYROGLOBULIN AB <1 < or = 1 IU/mL [facility] THYROGLOBULIN 8.8 ng/mL [facility] Comment: ?Reference Range: ?Intact Thyroid ?? 2.8-40.9 ?Athyrotic ?<0.1 ?Note: Abnormal flagging is based ?on the reference interval for ?patients with intact thyroid. ? This test was performed using the Emily Jason chemiluminescent method. Values obtained from different assay methods cannot be used interchangeably. Thyroglobulin levels, regardless of value, should not be interpreted as absolute evidence of the presence or absence of disease. For additional information, please refer to http://education.[employer]/faq/FZB733 (This link is being provided for informational/ educational purposes only.) 04/16/2024 1:08 PM CDT 04/18/2024 6:19 AM CDT Narrative Resulting Agency Comment Performing Organization Information: ?Site ID: [id number] ?Name: [facility] ?Address: [address] [place] [address] ?Director: Bryce Espinosa us Toney Mccracken MD LABORATORY Final Result Performing Organization Address City/[facility]/ZIP Co de Phone Number [facility] [address] [place] [address] * TRIIODOTHYRONINE TOTAL , TT-3 (04/16/2024 1:08 PM CDT) T3 TOTAL 105 86 - 192 NG/DL 04/16/2024 9:25 PM CDT [facility] 04/16/2024 1:08 PM CDT us Toney Mccracken MD LABORATORY Final Result Performing Organization Address City/[facility] de Phone Number [facility] [address] [place] [address], [phone] documented in this encounter Visit Diagnoses Diagnosis Annual physical exam- Primary Routine general medical examination at a health care facility Attention deficit disorder (ADD) without hyperactivity Neck pain Cervicalgia 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
--- OUTSIDE RECORDS SUMMARY | 2024-11-19 06:13 | XMS_ITS | Encounter Summary ---
Author Organization [facility] Address [address] [address] Care Team Providers Care Claims Consultant Name Role Phone Daniel Burroughs MD Primary Care Provider [phone] Reason for Visit * Reason Comments Sports Physical Encounter Details Date Type Department Care Team (Late st Contact Info) Description 07/05/2017 2:00 PM CDT Office Visit [facility] AT [address] [id number] Provider, [facility] [place] Sports physical (Primary Dx) Social History Tobacco Use Types Packs/Day Years Used Date Smoking Tobacco: Never Smokeless Tobacco: Never Comments:non-smoking househo Sex and Gender Information Value Date Recorded Sex Assigned at Not on file Gender Identity Not on file Sexual Orientation Not on file documented as of this encounter Last Filed Vital Signs Vital Sign Reading Time Taken Comments Blood Pressure 108/62 07/05/2017 2:18 PM CDT Pulse 56 07/05/2017 2:18 PM CDT Temperature 37.3 ??C (99.1 ??F) 07/05/2017 2:18 PM CD T Respiratory Rate 16 07/05/2017 2:18 PM CDT Oxygen Saturation 99% 07/05/2017 2:18 PM CDT Inhaled Oxygen Concentration - - Weight 48.5 kg (107 lb) 07/05/2017 2:18 PM CDT Height 160 cm (5' 3 ) 07/05/2017 2:18 PM CDT Body Mass Index 18.95 07/05/2017 2:18 PM CDT Body Mass Index Percentile 61.42% 07/05/2017 2:1 8 PM CDT Growth Chart: CDC (Boys, 2-2 0 Years) documented in this encounter Progress Notes * Helga Manuel, COMPOSITION STONE APPLICATOR-PLANT CUSTODIAN - 07/05/2017 2:18 PM CDT SUBJECTIVE: Reji Strange is a 11 y.o. male who presents to the office today with father for routine health care examination. Primary Care Physician is Daniel Burroughs MD Currently in seventhgrade at [employer] school. Parental concerns:none Doing well in school: yes Academic concerns : no Behavioral concerns: no Sports or exercise: yes ANTICIPATORY GUIDANCE: Seat belt or booster seat: yes Wears a helmet: yes [place] teeth twice per day: yes Dental exam once every 6-12 months Yes Good variety of fruits and vegetables: yes Drinks Milk: yes Discussed healthy eating and weight management: yes PMH: Past Medical History: Diagnosis Date ??? HSP (Henoch Schonlein purpura) ??? Seasonal allergies Feels well. No current ENMT symptoms. Denies chest pain, breathing difficulty, or exercise intolerance. Oscar musculoskeletal pain or skin issues. Denies excess fatigue with exertion Denies LOC or near LOC with strenuous exercise Denies unexplained SOB or dizziness Denies chest pain with exertion FH: Family History Problem Relation Age of Onset ??? Thyroid Disease Mother Grave's disease denies any family member who has suddenly prior to the age of 50 from a heart condition or an unknown cause. Denies any family member with Marfan syndrome. States no known family history of hypertropic or long QT syndrome States no known close relative <50 years of age with a disability from heart disease. Vitals: 07/05/17 1418 BP: 108/62 Pulse: 56 Resp: 16 Temp: 99.1 ??F SpO2: 99% Weight: 48.5 kg (107 lb) Wt Readings from Last 3 Encounters: 07/05/17 48.5 kg (107 lb) (70 %, Z= 0.52)* * Growth percentiles are based on [facility] 2-20 Years data. Ht Readings from Last 3 Encounters: 07/05/17 1.6 m (5' 3 ) (81 %, Z= 0.86)* * Growth percentiles are based on CDC 2-20 Years data. Body mass index is 18.95 kg/(m^2). 61 %ile (Z= 0.29) based on CDC 2-20 Years BMI-for-age data using vitals from 07/05/2017. 70 %ile (Z= 0.52) based on CDC 2-20 Years [id number]-psg-[id number] data using vitals from 07/05/2017. 81 %ile (Z= 0.86) based on CDC 2-20 Years hafrnhe-tzi-kif data using vitals from 07/05/2017. OBJECTIVE: GENERAL: alert EYES: PERRLA, EOMI, fundi grossly normal, red reflexes bilaterally and symmetrical. Vision exam left:20/16; right:20/16; bilateral 20/16. EARS: TM's wnl NOSE: nasal passages clear NECK: supple, no masses, no lymphadenopathy THROAT: no mucous membrane abnormalities, lips, mucosa, and tongue normal; teeth and gums normal RESP: clear to auscultation bilaterally CV: RRR, normal S1/S2, no murmurs, clicks, or rubs. Heart auscultated while sitting and supine. ABD: soft, nontender, no masses, no hepatosplenomegaly : not examined MS: normal strength of upper and lower extremities, no scoliosis. Duck walk performed without difficulty. NEURO: cranial nerves 2-12 intact with normal gait and balance SKIN: no rashes or lesions ASSESSMENT: Well Child Physical Encounter Diagnosis Name Primary? Sports physical Yes PLAN: Vaccines and plan per orders Discussed risks and benefits of vaccines Follow up yearly with PCP If no PCP on file will refer No orders of the defined types were placed in this encounter. No results found for this or any previous visit (from the past 24 hour(s)). documented in this encounter Plan of Treatment Not on file documented as of this encounter Visit Diagnoses Diagnosis Sports physical- Primary Other general medical examination for administrative purposes documented in this encounter Care Teams Claims Consultant Relationship Specialty Start Date End Date Daniel Burroughs MD [address] [place] [id number] PCP - General Pediatrics 07/05/17 documented as of this encounter
--- OUTSIDE RECORDS SUMMARY | 2024-11-19 06:13 | XMS_ITS | Encounter Summary ---
Author Organization [facility] Address [address] [place] [address]. [place], [place] [id number] [place] [address] Care Team Providers Care Field Support Engineer Name Role Phone Reyna Martinez MD Primary Care Provider [phone] Reason for Referral * Imaging (Routine) - Closed Specialty Diagnoses / Procedures Referred By Contac t Referred To Contact RADIOLOGY Diagnoses Hyperbilirubinemia Procedures US ABD LIMITED Reyna Martinez MD [address] [address] Phone: tel: fax: Referral ID Status Reason Start Date Expiration Date Visits Re quested Visits Authorized [id number] Closed 04/16/2023 04/16/2024 1 1 * Imaging (Routine) - Closed Specialty Diagnoses / Procedures Referred By Contac t Referred To Contact RADIOLOGY Diagnoses Cervical spine instability Procedures MRI CERV SPINE WO CON Reyna Martinez MD [address] [place] [address] Phone: tel:[phone] fax: Referral ID Status Reason Start Date Expiration Date Visits Re quested Visits Authorized [id number] Closed 05/10/2023 06/24/2023 1 1 Reason for Visit * Reason Comments Attention Deficit Disorder Encounter Details Date Type Department Care Team (Late st Contact Info) Description 04/15/2023 9:00 AM CDT Office Visit [facility] Family [facility] - [address] [place] [address] Reyna Martinez MD [address] [place] [address] Attention Deficit Disorder Social History Tobacco Use Types Packs/Day Years [...] suspected to have Coronavirus/COVID-19? No / Unsure 04/15/2023 8:51 AM CDT documented as of this encounter Last Filed Vital Signs Vital Sign Reading Time Taken Comments Blood Pressure 132/87 04/15/2023 9:01 AM CDT Pulse 93 04/15/2023 9:01 AM CDT Temperature 36.7 ??C (98.1 ??F) 04/15/2023 9:01 AM CD T Respiratory Rate 16 04/15/2023 9:01 AM CDT Oxygen Saturation 98% 04/15/2023 9:01 AM CDT Inhaled Oxygen Concentration - - Weight 80.3 kg (177 lb) 04/15/2023 9:01 AM CDT Height 175.3 cm (5' 9 ) 04/15/2023 9:01 AM CDT Body Mass Index 26.14 04/15/2023 9:01 AM CDT Body Mass Index Percentile 86.11% 04/15/2023 9:0 1 AM CDT Growth Chart: [facility] (Boys, 2-2 0 Years) documented in this encounter Progress Notes * Wally Wiggins MA - 04/15/2023 9:00 AM CDTAddended by: WALLY WIGGINS on: 04/15/2023 09:47 AM Modules accepted: Orders * Reyna Martinez MD - 04/15/2023 9:00 AM CDTAddended by: REYNA MARTINEZ on: 04/16/2023 12:46 PM Modules accepted: Orders * Reyna Martinez MD - 04/15/2023 9:00 AM CDT Images from the original note were not included. 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 The patient feels that the current medication is working well yet a little more would be helpful. The patient has problems with listening, staying on task, and focusing. The patient has the following concerns: decreased appetite and weight loss. The patient is compliant with medication(s). ADHD [...] cigarettes. Review of Systems Constitutional: Negative for fever or chills. HENT: Negative for congestion or sore throat. Eyes: Negative for eye discomfort or blurred vision. Cardiovascular: Negative for chest pain or leg swelling. Respiratory: Negative for cough or shortness of breath. Endocrine: Negative for increased thirst or urination. Skin: Negative for itching or rash. Musculoskeletal: Negative for joint swelling or muscle cramps. Gastrointestinal: Negative for constipation or diarrhea. Genitourinary: Negative for bladder incontinence or dysuria. Neurological: Negative for limp weakness or dizziness. Psychiatric/Behavioral: Negative for hallucinations or memory loss. +ADHD Medical History: History reviewed. No pertinent past medical history. Surgical History: History reviewed. No pertinent surgical history. Family History: No family history on file. Social History: Social History Socioeconomic History Marital status: Single Tobacco Use Smoking status: Never Smokeless tobacco: Never Vaping Use Vaping Use: Never used Substance and Sexual Activity Alcohol use: Never Drug use: Never Medications: Current Outpatient Medications: lisdexamfetamine (VYVANSE) 40 MG capsule, Take 1 capsule (40 mg total) by mouth every morning., Disp: 30 capsule, Rfl: 0 buPROPion XL (WELLBUTRIN XL) 300 MG 24 hr tablet, , Disp: , Rfl: cloNIDine (CATAPRES) 0.2 MG tablet, Take 1 tablet (0.2 mg total) by mouth nightly as needed., Disp:30 tablet, Rfl: 5 Allergies: Review of patient's allergies indicates: Allergen Reactions Penicillins Hives Young child Vitals: Filed Vitals: 04/15/23 0901 BP: 132/87 Pulse: 93 Resp: 16 Temp: 98.1 ??F (36.7 ??C) SpO2: 98% Weight: 80.3 kg (177 lb) Height: 5' 9 (1.753 m) Body mass index is 26.14 kg/m??. Physical Exam Constitutional: Appearance: Normal appearance. [...] Encounter Diagnose(s) ICD-10-CM ICD-9-CM SNOMED CT(R) 1. 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 Attention deficit disorder (ADD) without hyperactivity F98.8 314.00 ATTENTION DEFICIT HYPERACTIVITY DISORDER, PREDOMINANTLY INATTENTIVE TYPE lisdexamfetamine (VYVANSE) 40 MG capsule 3. Hyperbilirubinemia E80.6 782.4 HYPERBILIRUBINEMIA COMPREHENSIVE METABOLIC PANEL DHD, predominantly inattentive type, stable. Patient is well controlled on current dose of medication and has no problems with insomnia, decreased appetite, increased anxiety or motor tics. They may have 2 refills prior to their next appointment in 3 months. Recommendations and Plan: He will continue his current medications. Renewal given as per [facility]. He will follow-up in 3 months,sooner if any problems. Continue current ADHD medication(s). In compliance with Act 266, I have researched the ePDMP and have found no concerning issues. The patient was educated on the importance of adhering to treatment regimen in terms of their controlled substance and they have been counseled on the proper disposal of unused medication. I spent at least 30 minutes today reviewing the patient's medical record, obtaining history, performing an exam, ordering medications and/or tests, documenting in the medical record and counseling and educating the patient/family/caregiver who understands and agrees with the treatment plan. that isnot including any time spent performing separately reportable services such as procedures, injections, musculoskeletal manipulation, etc... REYNA MARTINEZ MD 04/15/2023 documented in this encounter Plan of Treatment Not on file documented as of this encounter Procedures Procedure Name Priority Date/Time Associated Diagnosis Comments COLLECTION VENOUS BLOOD VENIPUNCTURE Routine 04/15/2023 9:47 AM CDT Attention deficit disorder (ADD) without hyperactivity Cervical spine instability Hyperbilirubinemia COMPREHENSIVE METABOLIC PANEL Routine 04/15/2023 9:47 AM CDT Hyperbilirubinemia documented in this encounter Results * US ABD LIMITED (06/06/2023 3:25 PM CDT) Anatomical Region Laterality Modality Abdomen Ultrasound 06/06/2023 10:0 3 PM CDT Impressions 06/07/2023 3:08 AM CDT IMPRESSION: 1. ??Mild diffuse hepatic steatosis. 2. ??Otherwise, unremarkable limited abdominal sonogram. Referred By: REYNA MARTINEZ Interpreted By: Owen Covarrubias MD, 06/06/2023 10:03 PM Narrative 06/07/2023 3:08 AM CDT INDICATION: asymptomatic hyperbilirubinemia COMPARISON: None FINDINGS: Limited abdominal sonography was performed and showed a normal appearing inferior vena cava. The liver is normal in size. Hepatic parenchyma exhibits a diffuse pattern of increased echogenicity. No focal parenchymal lesions are seen. No intrahepatic biliary ductal dilation. Portal and hepatic veins are patent with appropriate directional flow. Gallbladder is nondistended and demonstrates normal wall thickness of 0.2 cm. No evidence of sludge, cholelithiasis, or pericholecystic fluid. Sonographic Hoang's sign was reported as negative by the land management supervisor. Common bile duct is within normal limits, measuring 0.3 cm. Visualized portion of the pancreas appears unremarkable. Pancreas is partially obscured by bowel gas shadow. Right kidney measures 10.2 x 5.2 x 4.9 cm. Renal echotexture is within normal limits without evidence of focal parenchymal abnormality. No evidence of hydronephrosis or shadowing calculus. No perinephric fluid is seen. Left kidney was not included in this study. Procedure Note Owen Covarrubias MD - 06/07/2023 INDICATION: asymptomatic hyperbilirubinemia COMPARISON: None FINDINGS: Limited abdominal sonography was performed and showed a normal appearinginferior vena cava. The liver is normal in size. Hepatic parenchyma exhibits a diffuse patternof increased echogenicity. No focal parenchymal lesions are seen. Nointrahepatic biliary ductal dilation. Portal and hepatic veins are patentwith appropriate directional flow. Gallbladder is nondistended and demonstrates normal wall thickness of 0.2cm. No evidence of sludge, cholelithiasis, or pericholecystic fluid.Sonographic Hoang's sign was reported as negative by the land management supervisor. Common bile duct is within normal limits, measuring 0.3 cm. Visualized portion of the pancreas appears unremarkable. Pancreas ispartially obscured by bowel gas shadow. Right kidney measures 10.2 x 5.2 x 4.9 cm. Renal echotexture is withinnormal limits without evidence of focal parenchymal abnormality. Noevidence of hydronephrosis or shadowing calculus. No perinephric fluid isseen. Left kidney was not included in this study. IMPRESSION: 1. Mild diffuse hepatic steatosis. 2. Otherwise, unremarkable limited abdominal sonogram. Referred By: REYNA MARTINEZ Interpreted By: Owen Covarrubias MD, 06/06/2023 10:03 PM us Reyna Martinez MD ULTRASOUND Final Result * MRI CERV SPINE WO CON (05/13/2023 3:07 PM CDT) Anatomical Region Laterality Modality Spine Magnetic Resonan ce 05/13/2023 8:45 PM CDT Impressions 05/13/2023 8:47 PM CDT IMPRESSION: 1. ??Normal appearance of the cervical spine. 2. ??Thyroglossal duct cyst Ordered By: REYNA MARTINEZ Interpreted By: Hossein Tenorio MD, 05/13/2023 8:45 PM Narrative 05/13/2023 8:47 PM CDT EXAMINATION: MRI cervical spine without contrast EXAM DATE/TIME: 05/13/2023 2:03 PM REASON FOR EXAM: ??C2-3 possible retrolisthesis, Neck pain, chronic ? COMPARISON: Cervical spine radiographs 03/19/2023 TECHNIQUE: Mutiplanar, multisequence MRI of the cervical spine was obtained without the use of an IV contrast agent. FINDINGS: There is straightening of the normal cervical lordosis that is likely positional. The cervical vertebral bodies and facets are well aligned. The cervical vertebral body heights are preserved. Normal marrow signal within the cervical spine. No abnormal prevertebral or paraspinal soft tissue swelling. The cervical spinal cord has a normal signal throughout its course. There is a thyroglossal duct cyst (best seen on series 5 image 20). No significant spinal canal or neural foraminal stenosis at any level. Procedure Note Hossein Tenorio MD - 05/13/2023 EXAMINATION: MRI cervical spine without contrast EXAM DATE/TIME: 05/13/2023 2:03 PM REASON FOR EXAM: C2-3 possible retrolisthesis, Neck pain, chronic COMPARISON: Cervical spine radiographs 03/19/2023 TECHNIQUE: Mutiplanar, multisequence MRI of the cervical spine wasobtained without the use of an IV contrast agent. FINDINGS: There is straightening of the normal cervical lordosis that islikely positional. The cervical vertebral bodies and facets are wellaligned. The cervical vertebral body heights are preserved. Normal marrowsignal within the cervical spine. No abnormal prevertebral or paraspinalsoft tissue swelling. The cervical spinal cord has a normal signalthroughout its course. There is a thyroglossal duct cyst (best seen onseries 5 image 20). No significant spinal canal or neural foraminalstenosis at any level. IMPRESSION: 1. Normal appearance of the cervical spine. 2. Thyroglossal duct cyst Ordered By: REYNA MARTINEZ Interpreted By: Hossein Tenorio MD, 05/13/2023 8:45 PM Reyna Martinez MD MRI Final Result * (ABNORMAL) COMPREHENSIVE METABOLIC PANEL (04/15/2023 9:47 AM CDT) SODIUM S/P/B 140 136 - 145 MMOL/L 04/15/2023 3:24 PM CDT [facility] POTASSIUM S/P/B 4.0 3.5 - 5.1 MMOL/L 04/15/2023 3:24 PM CDT [facility] CHLORIDE S/P/B 103 98 - 107 MMOL/L 04/15/2023 3:24 PM CDT [facility] CO2 30.7 21 - 32 MMOL/L 04/15/2023 3:24 PM CDT [facility] GLUCOSE 93 70 - 99 MG/DL 04/15/2023 3:24 PM CDT [facility] BUN 13 7 - 18 MG/DL 04/15/2023 3:24 PM T [facility] CREATININE S/P/B 1.07 0.70 - 1.30 MG/DL 04/15/2023 3:24 PM CDT [facility] CALCIUM S/P/B 9.6 9.5 - 10.4 MG/DL 04/15/2023 3:24 PM T [facility] BILIRUBIN TOTAL S/P/B 1.5(H) 0.2 - 1.0 MG/DL 04/15/2023 3:24 PM T [facility] ALKALINE PHOSPHATASE S/P/B 73 52 - 222 U/L 04/15/2023 3:24 PM T [facility] AST 12(L) 15 - 37 U/L 04/15/2023 3:24 PM T [facility] ALT 26 16 - 63 U/L 04/15/2023 3:24 PM CDT [facility] TOTAL PROTEIN S/P/B 8.0 6.4 - 8.2 G/DL 04/15/2023 3:24 PM T [facility] ALBUMIN S/P/B 4.7 3.4 - 5.0 G/DL 04/15/2023 3:24 PM CDT [facility] ANION GAP 6.3 5 - 15 MMOL/L 04/15/2023 3:24 PM CDT [facility] Comment:REFERENCE RANGE NOT ESTABLISHED OSMOLALITY (CALC) 290 MOSM/KG 023 3:24 PM CDT [facility] Comment:REFERENCE RANGE NOT ESTABLISHED GFR ESTIMATE >90 >90 ML/MIN/1. 73 M2 04/15/2023 3:24 PM CDT [facility] GFR NOTES GFR REFERENCE S: 04/15/2023 3:24 PM CDT [facility] Comment: THE ESTIMATED GFR IS CALCULATED USING [...] ml/min/1.73 m2 G5,KIDNEY FAILURE: <15 ml/min/1.73 m2 04/15/2023 9:47 AM CDT Reyna Martinez MD LABORATORY Final Result [facility] [place] [address] [facility] [place] [address], documented in this encounter Visit Diagnoses Diagnosis Cervical spine instability- Primary Unspecified musculoskeletal disorders and symptoms referable to neck Attention deficit disorder (ADD) without hyperactivity Hyperbilirubinemia Jaundice, unspecified, not of Cervical spine instability Unspecified musculoskeletal disorders and symptoms referable to neck Hyperbilirubinemia Jaundice, unspecified, not of documented in this encounter Additional Health Concerns Assessment Noted Time PHQ-9 Depression Total Score: 4 04/15/20 9:03 AM CDT documented as of this encounter Care Teams Field Support Engineer Relationship Specialty Start Date End Date Reyna Martinez MD [address] [address] PCP - General FAMILY PRACTICE 12/20/22 documented as of this encounter
--- OUTSIDE RECORDS SUMMARY | 2024-11-19 06:13 | XMS_ITS | Encounter Summary ---
Author Organization [facility] Address [address] [place] [address]. [place], [place] [address] [place] [address] Care Team Providers Care Septic Tank Installer Name Role Phone Toney Mccracken MD Primary Care Provider [phone] Encounter Details Date Type Department Care Team (Latest Contact Info) Description 04/15/2023 Travel Social History Tobacco Use Types Packs/Day Years [...] AM CDT documented as of this encounter Plan of Treatment Not on file documented as of this encounter Visit Diagnoses Not on filedocumented in this encounter Additional Health Concerns Assessment Noted Time PHQ-9 Depression Total Score: 4 04/15/20 9:03 AM CDT documented as of this encounter Care Teams Septic Tank Installer Relationship Specialty Start Date End Date Toney Mccracken MD [address] [address] [place] [address] PCP - General FAMILY PRACTICE 12/20/22 documented as of this encounter
--- OUTSIDE RECORDS SUMMARY | 2024-11-19 06:13 | XMS_ITS | Encounter Summary ---
Author Organization [facility] Address [address] [place] [address]. [place], [place] [id number] [place] [address] Care Team Providers Care Mft Name Role Phone Toney Martinez MD Primary Care Provider [phone] Reason for Referral * Imaging (Routine) - Closed Specialty Diagnoses / Procedures Referred By Makenzie moya Referred To Contact RADIOLOGY Diagnoses Thyroglossal duct cyst Procedures US SOFT TISS HEAD OR NECK US SOFT TISS NECK BX Toney Martinez MD [address] [place] [address] [place] [address] Phone: tel:[phone] fax: Referral ID Status Reason Start Date Expiration Date Visits Re quested Visits Authorized [id number] Closed 02/20/2024 02/19/2025 1 1 Reason for Visit * Imaging (Routine) - Closed Specialty Diagnoses / Procedures Referred By Makenzie moya Referred To Contact RADIOLOGY Diagnoses Thyroglossal duct cyst Procedures US SOFT TISS HEAD OR NECK US SOFT TISS NECK BX Toney Martinez MD [address] [place] [address] Phone: tel:[phone] fax: Referral ID Status Reason Start Date Expiration Date Visits Re quested Visits Authorized [id number] Closed 02/20/2024 02/19/2025 1 1 Encounter Details Date Type Department Care Team (Latest Contact Info) Description 03/26/2024 6:52 AM CDT - 03/26/2024 11:59 PM CDT Hospital Encounter [facility] [place] [address] Toney Martinez MD [address] [facility] [address] [place] [address] Discharge Disposition: Home or Self Care (Routine Discharge) Social History Tobacco Use Types Packs/Day Years [...] on file documented as of this encounter Medications at Time of Discharge buPROPion XL (WELLBUTRIN XL) 300 MG 24 hr tabletIndications:A nnual physical exam Take 1 tablet (300 mg total) by mouth every morning. 30 tablet 11 06/17/2023 4 cloNIDine (CATAPRES) 0.2 MG tabletIndications:A ttention deficit disorder (ADD) without hyperactivity Take 1 tablet (0.2 mg total) by mouth nightly as needed. 90 tablet 3 02/20/2024 4 lisdexamfetamine (VYVANSE) 40 MG capsuleIndications: Attention deficit disorder (ADD) without hyperactivity Take 1 capsule (40 mg total) by mouth every morning. 30 capsule 01/12/2024 4 lisdexamfetamine (VYVANSE) 40 MG capsuleIndications: Attention deficit disorder (ADD) without hyperactivity Take 1 capsule (40 mg total) by mouth every morning. 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
--- OUTSIDE RECORDS SUMMARY | 2024-11-19 06:13 | XMS_ITS | Encounter Summary ---
Author Organization [facility] Address [address] [place] [address]. [place], [place] [id number] [place] [address] Care Team Providers Care Sodder Name Role Phone Toney Mccracken MD Primary Care Provider [phone] Encounter Details Date Type Department Care Team (Latest Contact Info) Description 04/16/2024 - 04/16/2024 11:59 PM CDT Hospital Encounter [facility] [address] [place] [address] Toney Mccracken MD [address] [place] [id number] Discharge Disposition: Home or Self Care (Routine [...] have either generic or brand 30 capsule 04/16/2024 4 documented as of this encounter Plan of Treatment Not on file documented as of this encounter Visit Diagnoses Not on filedocumented in this encounter Additional Health Concerns Assessment Noted Time PHQ-9 Depression Total Score: 9 04/16/20 24 12:01 PM CDT documented as of this encounter Care Teams Sodder Relationship Specialty Start Date End Date Toney Mccracken MD [address] [address] PCP - General FAMILY PRACTICE 12/20/22 documented as of this encounter
--- OUTSIDE RECORDS SUMMARY | 2024-11-19 06:13 | XMS_ITS | Encounter Summary ---
Author Organization [facility] Address [address] [place] [address]. [place], [place] [address] [place] [address] Care Team Providers Care Crew Director Name Role Phone Toney Mccracken MD Primary Care Provider [phone] Reason for Referral * Imaging (Routine) - Closed Specialty Diagnoses / Procedures Referred By Contac t Referred To Contact RADIOLOGY Diagnoses Cervical spine instability Procedures MRI CERV SPINE WO CON Toney Mccracken MD [address] [place] [address] Phone: tel:[phone] fax: Referral ID Status Reason Start Date Expiration Date Visits Re quested Visits Authorized [id number] Closed 05/10/2023 06/24/2023 1 1 Reason for Visit * Imaging (Routine) - Closed Specialty Diagnoses / Procedures Referred By Contac t Referred To Contact RADIOLOGY Diagnoses Cervical spine instability Procedures MRI CERV SPINE WO CON Toney Mccracken MD [address] [place] [address] Phone: tel:[phone] fax: Referral ID Status Reason Start Date Expiration Date Visits Re quested Visits Authorized [id number] Closed 05/10/2023 06/24/2023 1 1 Encounter Details Date Type Department Care Team (Latest Contact Info) Description 05/13/2023 1:47 PM CDT - 05/13/2023 11:59 PM CDT Hospital Encounter [facility] [place] [address] [address] Toney Mccracken MD [address] [facility] [address] [place] [address] Discharge Disposition: Home or Self Care (Routine [...] AM CDT documented as of this encounter Medications at Time of Discharge buPROPion XL (WELLBUTRIN XL) 300 MG 24 hr tabletIndications:A nnual physical exam Take 1 tablet (300 mg total) by mouth every morning. 30 tablet 11 04/22/2023 3 cloNIDine (CATAPRES) 0.2 MG tabletIndications:A ttention deficit disorder (ADD) without hyperactivity Take 1 tablet (0.2 mg total) by mouth nightly as needed. 30 tablet 5 01/12/2023 3 lisdexamfetamine (VYVANSE) 40 MG capsuleIndications: Attention deficit disorder (ADD) without hyperactivity Take 1 capsule (40 mg total) by mouth every morning. 30 capsule 05/13/2023 3 documented as of this encounter Plan of Treatment Not on file documented as of this encounter Procedures Procedure Name Priority Date/Time Associated Diagnosis Comments MRI CERV SPINE WO CON Routine 05/13/2023 3:07 PM CDT Cervical spine instability documented in this encounter Results * MRI CERV SPINE WO CON (05/13/2023 3:07 PM CDT) Anatomical Region Laterality Modality Spine Magnetic Resonan ce 05/13/2023 8:45 PM CDT Impressions 05/13/2023 8:47 PM CDT IMPRESSION: 1. ??Normal appearance of the cervical spine. 2. ??Thyroglossal duct cyst Ordered By: TONEY MCCRACKEN Interpreted By: Hossein Tenorio MD, 05/13/2023 8:45 [...] spine. 2. Thyroglossal duct cyst Ordered By: TONEY MCCRACKEN Interpreted By: Hossein Tenorio MD, 05/13/2023 8:45 PM Toney Mccracken MD MRI Final Result documented in this encounter Visit Diagnoses Diagnosis Cervical spine instability Unspecified musculoskeletal disorders and symptoms referable to neck documented in this encounter Additional Health Concerns Assessment Noted Time PHQ-9 Depression Total Score: 4 04/15/20 23 9:03 AM CDT documented as of this encounter Care Teams Crew Director Relationship Specialty Start Date End Date Toney Mccracken MD [address] [place] [address] PCP - General FAMILY PRACTICE 12/20/22 documented as of this encounter
--- OUTSIDE RECORDS SUMMARY | 2024-11-19 06:13 | XMS_ITS | Encounter Summary ---
Author Organization [facility] Address [address] [place] [address]. [place] [address] [place] [address] Care Team Providers Care Graphite Mill Operator Name Role Phone Toney Martinez MD Primary Care Provider [phone] Reason for Visit * Reason Comments Establish Care Annual physical exam , discuss mental health issues Neck Pain Pain over 5 years in neck Encounter Details Date Type Department Care Team (Late st Contact Info) Description 01/12/2023 1:00 PM RECRUITING MANAGER Office Visit [facility] - [place] [address] [place] [address] Toney Martinez MD [address] [address] Establish Care (Annual physical exam, discuss mental health issues/); Neck Pain (Pain over 5 years in neck) Social History Tobacco Use Types Packs/Day Years [...] suspected to have Coronavirus/COVID-19? No / Unsure 01/12/2023 12:25 PM RECRUITING MANAGER documented as of this encounter Last Filed Vital Signs Vital Sign Reading Time Taken Comments Blood Pressure 100/65 01/12/2023 12:35 PM RECRUITING MANAGER Pulse 79 01/12/2023 12:35 PM RECRUITING MANAGER Temperature 36.7 ??C (98.1 ??F) 01/12/2023 12:[address] Respiratory Rate 16 01/12/2023 12:35 PM RECRUITING MANAGER Oxygen Saturation 99% 01/12/2023 12:35 PM RECRUITING MANAGER Inhaled Oxygen Concentration - - Weight 88.9 kg (196 lb) 01/12/2023 12:35 PM RECRUITING MANAGER Height 175.3 cm (5' 9 ) 01/12/2023 12:35 PM RECRUITING MANAGER Body Mass Index 28.94 01/12/2023 12:35 PM RECRUITING MANAGER Body Mass Index Percentile 94.84% 01/12/2023 12: 35 PM RECRUITING MANAGER Growth Chart: [facility] (Boys, 2-2 0 Years) documented in this encounter Progress Notes * Toney Martinez MD - 01/12/2023 1:00 PM CST Images from the original note were not included. [facility] Encounter Date: 01/12/2023 Reason for Visit: Annual Health Maintenance Exam History of Present Illness: Reji Strange is a 17-year-old male here for the annual exam: Doing well currently without complaint or issue and wanting to get up to date on screening. He is pleasant and cooperative. Reported Health: good Immunizations up to date: Yes annual influenza up to date his last health maintenance visit was:1 year ago Regular dental visits twice a year: Yes Vision problems: Yes wears glasses Hearing problems: No Lifestyle: Diet: Well Balanced Diet Exercise: moderate regular exercise program Strength Training 3 days per week Weight Concern: No Tobacco use: No Alcohol use: No, No alcohol at all Illicit Drug use: none No FH of colon or prostate cancer ROS: Review of Systems Constitutional: Negative. HENT: Negative. Eyes: Negative. Respiratory: Negative. Cardiovascular: Negative. Gastrointestinal: Negative. Genitourinary: Negative. Musculoskeletal: Negative. Skin: Negative. Neurological: Negative. Endo/Heme/Allergies: Negative. Psychiatric/Behavioral: Negative. Medications: Current Outpatient Medications: ??? cloNIDine (CATAPRES) 0.2 MG tablet, Take 1 tablet (0.2 mg total) by mouth nightly as needed., Disp: 30 tablet, Rfl: 5 ??? lisdexamfetamine (VYVANSE) 30 MG capsule, Take 1 capsule (30 mg total) by mouth every morning.,Disp: 30 capsule, Rfl: 0 ??? buPROPion XL (WELLBUTRIN XL) 300 MG 24 hr tablet, , Disp: , Rfl: Allergies: Not on File Medical History: History reviewed. No pertinent past medical history. Surgical History: History reviewed. No pertinent surgical history. Social History: Social History Socioeconomic History ??? Marital status: Unknown Tobacco Use ??? Smoking status: Never ??? Smokeless tobacco: Never Vaping Use ??? Vaping Use: Never used Substance and Sexual Activity ??? Alcohol use: Never ??? Drug use: Never Family History: No family history on file. Reviewed and updated this visit by provider: Physical Exam Vitals and nursing note reviewed. Constitutional: General: Not in acute distress. Appearance: Normal appearance. She is well-developed and normal weight. Comments: VSS HENT: Head: Normocephalic and atraumatic. Nose: Nose normal. Mouth: Mucous membranes are moist. Eyes: Extraocular Movements: Extraocular movements intact. Conjunctiva/sclera: Conjunctivae normal. Cardiovascular: Rate and Rhythm: Normal rate and regular rhythm. Pulses: Normal pulses. Heart sounds: No murmur heard. Pulmonary: Effort: Pulmonary effort is normal. No respiratory distress. Breath sounds: Normal breath sounds. Abdominal: General: There is no distension. Palpations: Abdomen is soft. Musculoskeletal: General: Normal range of motion. Normal Gait. Skin: General: Skin is warm and dry. Neurological: Mental Status: She is alert and oriented. Psychiatric: Mood and Affect: Mood and affect normal. Judgment: Judgment normal. Filed Vitals: 01/12/23 1235 BP: 100/65 Pulse: 79 Resp: 16 Temp: 98.1 ??F (36.7 ??C) SpO2: 99% Weight: 88.9 kg (196 lb) Height: 5' 9 (1.753 m) Body mass index is 28.94 kg/m??. Diagnoses/Impression: Encounter Diagnose(s) ICD-10-CM ICD-9-CM SNOMED CT(R) 1. Annual physical exam Z00.00 V70.0 PATIENT ENCOUNTER STATUS 2. Attention deficit disorder (ADD) without hyperactivity F98.8 314.00 ATTENTION DEFICIT HYPERACTIVITY DISORDER, PREDOMINANTLY INATTENTIVE TYPE COMPREHENSIVE METABOLIC PANEL CBC W/DIFF AUTOMATED HEMOGLOBIN, GLYCOSYLATED LIPID PANEL TSH W/REFLEX THYROXINE, FREE (FT4) TRIIODOTHYRONINE TOTAL , TT-3 lisdexamfetamine (VYVANSE) 30 MG capsule cloNIDine (CATAPRES) 0.2 MG tablet 3. Neck pain M54.2 723.1 NECK PAIN XR CERV SP OBL+FLEX+EXT 7V 4. Chronic midline back pain, unspecified back location M54.9 724.5 BACKACHE XR LUMB SP+FLEX+EXT MIN 4V G89.29 338.29 XR SCOLIOSIS Recommendations and Plan: Impression: Healthy adult. Currently adequate diet is followed. Adequate exercise regimen is followed. Advice and education were given regarding nutrition, aerobic exercise, weight bearing exercise, weight loss, sunscreen use and seat belt use. Colorectal screening is is not yet due The risks and benefits of immunizations were discussed and immunizations recommended per ACIP guidelines. Orders Placed This Encounter ??? XR CERV SP OBL+FLEX+EXT 7V ??? XR LUMB SP+FLEX+EXT MIN 4V ??? XR SCOLIOSIS ??? COMPREHENSIVE METABOLIC PANEL ??? CBC W/DIFF AUTOMATED ??? HEMOGLOBIN, GLYCOSYLATED ??? LIPID PANEL ??? TSH W/REFLEX ??? THYROXINE, FREE (FT4) ??? TRIIODOTHYRONINE TOTAL , TT-3 ??? buPROPion XL (WELLBUTRIN XL) 300 MG 24 hr tablet ??? lisdexamfetamine (VYVANSE) 30 MG capsule ??? cloNIDine (CATAPRES) 0.2 MG tablet I personally spent a total of 45 minutes on the day of the encounter. This includes vvoy-tt-hnyh and mkv-afuc-li-face time I provided on the day of the encounter & excludes time spent performing separately reportable services. TONEY MARTINEZ MD 01/12/2023 UITING MANAGER documented in this encounter Plan of Treatment Not on file documented as of this encounter Results * XR SCOLIOSIS (03/19/2023 11:33 AM CDT) Anatomical Region Laterality Modality Spine Radiographic Patricia ging 03/21/2023 12:2 9 PM CDT Impressions 03/21/2023 12:30 PM CDT IMPRESSION: No significant scoliotic curvature of the spine. Ordered By: TONEY MARTINEZ Interpreted By: Arnoldo Baker MD, 03/21/2023 12:29 PM Narrative 03/21/2023 12:30 PM CDT Examination: XR SCOLIOSIS Exam time: 03/19/2023 10:51 AM Clinical history: Neck and back pain. Comparison: No comparison. Technique: AP and lateral upright views of the spine. Findings: There are 12 rib pairs. There are 5 nonrib-bearing lumbar vertebrae. No vertebral segmentation anomalies are seen. The vertebral body heights and disc spaces are preserved. No fracture or destructive process. No significant pelvic tilt. Risser 5 iliac crest apophysis. No significant scoliotic curvature of the spine. Procedure Note Arnoldo Baker MD - 03/21/2023 Examination: XR SCOLIOSIS Exam time: 03/19/2023 10:51 AM Clinical history: Neck and back pain. Comparison: No comparison. Technique: AP and lateral upright views of the spine. Findings: There are 12 rib pairs. There are 5 nonrib-bearing lumbar vertebrae. Novertebral segmentation anomalies are seen. The vertebral body heights anddisc spaces are preserved. No fracture or destructive process. Nosignificant pelvic tilt. Risser 5 iliac crest apophysis. No significant scoliotic curvature of the spine. IMPRESSION: No significant scoliotic curvature of the spine. Ordered By: TONEY MARTINEZ Interpreted By: Arnoldo Baker MD, 03/21/2023 12:29 PM us Toney Martinez MD GENERAL IMAGING Final Result * XR LUMB SP+FLEX+EXT MIN 4V (03/19/2023 11:33 AM CDT) Anatomical Region Laterality Modality Spine Radiographic Patricia ging 03/20/2023 8:12 AM CDT Impressions 03/20/2023 8:12 AM CDT IMPRESSION: 1. Normal radiograph of lumbar spine. 2. No evidence of instability on flexion/extension views. Ordered By: TONEY MARTINEZ Interpreted By: Reji Orellana MD, 03/20/2023 8:12 AM Narrative 03/20/2023 8:12 AM CDT Examination: X-ray lumbar spine, 4 views. Exam time: 03/19/2023 10:51 AM Clinical history: Back pain Comparison: None Technique: Frontal, lateral, flexion/extension views of the lumbar spine were obtained. Findings: Vertebral body heights are normal. The vertebral disc spaces are average width. Bone alignment is normal. No diastases of sacroiliac joints. Procedure Note Reji Orellana MD - 03/20/2023 Examination: X-ray lumbar spine, 4 views. Exam time: 03/19/2023 10:51 AM Clinical history: Back pain Comparison: None Technique: Frontal, lateral, flexion/extension views of the lumbar spinewere obtained. Findings: Vertebral body heights are normal. The vertebral disc spaces areaverage width. Bone alignment is normal. No diastases of sacroiliacjoints. IMPRESSION: 1. Normal radiograph of lumbar spine. 2. No evidence of instability on flexion/extension views. Ordered By: TONEY MARTINEZ Interpreted By: Reji Orellana MD, 03/20/2023 8:12 AM us Toney Martinez MD GENERAL IMAGING Final Result * XR CERV SP OBL+FLEX+EXT 7V (03/19/2023 11:33 AM CDT) Anatomical Region Laterality Modality Spine Radiographic Patricia ging 03/20/2023 8:09 AM CDT Impressions 03/20/2023 8:11 AM CDT IMPRESSION: 1. Questionable instability, C2-C3, as evidenced by 2 mm anterolisthesis of C2 on C3 on flexion views. Ordered By: TONEY MARTINEZ Interpreted By: Reji Orellana MD, 03/20/2023 8:09 AM Narrative 03/20/2023 8:11 AM CDT Examination: Cervical spine x-rays, 7 views. Exam time: 03/19/2023 Clinical history: Neck pain Comparison: None Technique: AP, lateral, odontoid, flexion and extension, and bilateral oblique views of the cervical spine were obtained. Findings: Cervical spine is visualized to T1. ??Vertebral body heights are normal. Intervertebral disc spaces are average width. Visualized bone alignment on lateral view appears normal on neutral and extension views. However, there appears to be approximately 2 mm anterolisthesis of C2 on C3 on flexion views. Odontoid process is intact. Lateral mass of C1 is in proper articulation with C2. No prevertebral soft tissue swelling. Procedure Note Reji Orellana MD - 03/20/2023 Examination: Cervical spine x-rays, 7 views. Exam time: 03/19/2023 Clinical history: Neck pain Comparison: None Technique: AP, lateral, odontoid, flexion and extension, and bilateraloblique views of the cervical spine were obtained. Findings: Cervical spine is visualized to T1. Vertebral body heights arenormal. Intervertebral disc spaces are average width. Visualized bonealignment on lateral view appears normal on neutral and extension views.However, there appears to be approximately 2 mm anterolisthesis of C2 onC3 on flexion views. Odontoid process is intact. Lateral mass of C1 is inproper articulation with C2. No prevertebral soft tissue swelling. IMPRESSION: 1. Questionable instability, C2-C3, as evidenced by 2 mm anterolisthesisof C2 on C3 on flexion views. Ordered By: TONEY MARTINEZ Interpreted By: Reji Orellana MD, 03/20/2023 8:09 AM us Toney Martinez MD GENERAL IMAGING Final Result * TRIIODOTHYRONINE TOTAL , TT-3 (03/19/2023 11:03 AM CDT) T3 TOTAL 136.8 86 - 192 ng/dL 03/24/2023 4:10 AM CDT [facility] Comment: Test Performed by Howard Sterling, [employer], [address] [place] [address] Frank Cavazos M.D., Ph.D., Director of Laboratories , [facility] [id number] 03/19/2023 11:0 3 AM CDT Toney Martinez MD LABORATORY Final Result [facility] [address] [address], [place] [phone] * THYROXINE, FREE (FT4) (03/19/2023 11:03 AM CDT) FREE T4 1.06 0.76 - 1.46 NG/DL 03/19/2023 12:47 PM CDT [facility] 03/19/2023 11:0 3 AM CDT Toney Martinez MD LABORATORY Final Result [facility] [address] [place] [address], [place] [phone] * TSH W/REFLEX (03/19/2023 11:03 AM CDT) TSH 1.980 0.358 - 3.74 uIU/ML 03/19/2023 12:47 PM CDT [facility] Comment: HIGH DOSES OF BIOTIN MAY INTERFERE WITH THIS TEST RESULT. CORRELATION TO CLINICAL HISTORY AND PRESENTATION RECOMMENDED. FREE T4 NOT INDICATED 03/19/2023 11:0 3 AM CDT us Toney Martinez MD LABORATORY Final Result [facility] [address] [place] [address], * LIPID PANEL (03/19/2023 11:03 AM CDT) CHOLESTEROL 126 <200 MG/DL 03/19/2023 12:47 PM CDT [facility] TRIGLYCERIDES 82 <150 MG/DL 03/19/2023 12:47 PM CDT [facility] HDL 41 >40.0 MG/DL 03/19/2023 12:47 PM CDT [facility] LDL (CALCULATED) 69 <100 MG/DL 03/19/20 12:47 PM CDT [facility] NON HDL CHOLESTEROL 85 <130 MG/DL 03/19 12:47 PM CDT [facility] CHOL/HDL RATIO 3.1 0.0 - 4.5 03/19/2023 12:47 PM CDT [facility] VLDL CALCULATION 16 5 - 55 MG/DL 03/19/2023 12:47 PM CDT [facility] LIPID INTERPRETATION 03/19/2023 12:47 PM CDT [facility] Comment: NIH CONCENSUS REPORT RECOMMENDATIONS: ?ADULT ?CHILD ??LOW RISK: ?CHOLESTEROL ? <200 ? <170 ?TRIGLYCERIDE ?<150 ?--- ?HDL ? >=60 ?--- ?LDL ? <100 ? <110 ??BORDERLINE: ?CHOLESTEROL ? 200-239 ?? 170-199 ?TRIGLYCERIDE ?150-199 ? --- ?HDL ?40-59 ?--- ?LDL ? 100-159 ?? 110-129 ??HIGH RISK: ?CHOLESTEROL ? >=240 ?>=200 ?TRIGLYCERIDE ?>=200 ? --- ?HDL ?<40 ?--- ?LDL ? >=160 ?>=130 03/19/2023 11:0 3 AM CDT us Toney Martinez MD LABORATORY Final Result [facility] [address] [place] [address], * HEMOGLOBIN, GLYCOSYLATED (03/19/2023 11:03 AM CDT) HGB A1C 5.4 <5.7 % 03/19/2023 1:54 PM CDT [facility] Comment: ADA GUIDELINES 2010 5.7 TO 6.4% INCREASED RISK OF DIABETES > OR = 6.5% CONSISTENT WITH DIABETES ESTIMATED AVG GLUCOSE 108 mg/dL 03/19/2023 1:54 PM CDT [facility] 03/19/2023 11:0 3 AM CDT Toney Martinez MD LABORATORY Final Result [facility] [address] [place] [address], * CBC W/DIFF AUTOMATED (03/19/2023 11:03 AM CDT) WBC 4.8 4.5 - 13.0 x10'3/uL 03/19/2023 12:21 PM CDT [facility] RBC 5.77 4.70 - 6.10 x10'6/uL 03/19/2023 12:21 PM CDT [facility] HGB 16.9 14.0 - 18.0 G/DL 03/19/2023 12:21 PM CDT [facility] HCT 49.3 43.0 - 54.0 % 03/19/2023 12:21 PM CDT [facility] MCV 85.4 80.0 - 94.0 FL 03/19/2023 12:21 PM CDT [facility] MCH 29.3 27.0 - 31.0 PG 03/19/2023 12:21 PM CDT [facility] MCHC 34.3 32.0 - 36.0 G/DL 03/19/2023 12:21 PM CDT [facility] RDW 11.9 11.5 - 14.5 % 03/19/2023 12:21 PM CDT [facility] PLT 219 130 - 400 x10'3/uL 03/19/2023 12:21 PM CDT [facility] MPV 11.4 9.3 - 12.2 FL 03/19/2023 12:21 PM CDT [facility] DIFFERENTIAL TYPE AUTOMATED DIFFERENTIAL 03/19/2023 12:21 PM CDT [facility] NEUTROPHILS % 56.2 % 03/19/2023 12:21 PM CDT [facility] LYMPHOCYTES % 33.0 % 03/19/2023 12:21 PM CDT [facility] MONOCYTES % 8.1 % 03/19/2023 12:21 PM CDT [facility] EOSINOPHILS 2.3 % 03/19/2023 12:21 PM CDT [facility] BASOPHILS 0.2 % 03/19/2023 12:21 PM CDT [facility] IMMATURE GRANS % 0.2 % 03/19/20 12:21 PM CDT [facility] ABS. NEUTROPHILS TOTAL 2.71 1.80 - 8.00 x10'3/uL 03/19/2023 12:21 PM CDT [facility] ABS. LYMPHOCYTES 1.59 1.20 - 5.20 x10'3/uL 03/19/2023 12:21 PM CDT [facility] ABS. MONOCYTES 0.39 0.30 - 0.82 x10'3/uL 03/19/2023 12:21 PM CDT [facility] ABS. EOSINOPHILS 0.11 0.04 - 0.54 x10'3/uL 03/19/2023 12:21 PM CDT [facility] ABS. BASOPHILS 0.01 0.01 - 0.08 x10'3/uL 03/19/2023 12:21 PM CDT [facility] ABS. IMMATURE GRANULOCYTES 0.01 0.00 - 0.49 x10'3/uL 03/19/2023 12:21 PM CDT [facility] 03/19/2023 11:0 3 AM CDT Toney Martinez MD LABORATORY Final Result [facility] [address] [place] [address], * (ABNORMAL) COMPREHENSIVE METABOLIC PANEL (03/19/2023 11:03 AM CDT) GLUCOSE 81 70 - 99 MG/DL 03/19/2023 12:47 PM CDT [facility] BUN 11 7 - 18 MG/DL 03/19/2023 12:47 PM CDT [facility] CREATININE S/P/B 1.01 0.7 - 1.3 MG/DL 03/19/2023 12:47 PM CDT [facility] SODIUM S/P/B 140 136 - 145 MMOL/L 03/19/2023 12:47 PM CDT [facility] POTASSIUM S/P/B 3.5 3.5 - 5.1 MMOL/L 03/19/2023 12:47 PM CDT [facility] CHLORIDE S/P/B 109(H) 100 - 108 MMOL/L 03/19/2023 12:47 PM CDT [facility] CO2 25.5 21 - 32 MMOL/L 03/19/2023 12:47 PM CDT [facility] CALCIUM S/P/B 9.9 8.5 - 10.1 MG/DL 03/19/2023 12:47 PM CDT [facility] BILIRUBIN TOTAL S/P/B 1.7(H) 0.2 - 1.1 MG/DL 03/19/2023 12:47 PM CDT [facility] Comment: THIS ASSAY IS NOT RECOMMENDED FOR PATIENTS UNDERGOING TREATMENT WITH ELTROMBOPAG DUE TO THE POTENTIAL FOR FALSELY ELEVATED RESULTS. TOTAL PROTEIN S/P/B 8.3(H) 6.4 - 8.2 G/DL 03/19/2023 12:47 PM CDT [facility] ALBUMIN S/P/B 4.6 3.4 - 5.0 G/DL 03/19/2023 12:47 PM CDT [facility] AST 10(L) 15 - 37 U/L 03/19/2023 12:47 PM T [facility] ALT 22 16 - 60 U/L 03/19/2023 12:47 PM T [facility] ALKALINE PHOSPHATASE S/P/B 65 65 - 260 U/L 03/19/2023 12:47 PM T [facility] ANION GAP 5.5 5 - 15 MMOL/L 03/19/2023 12:47 PM T [facility] BUN CREATININE RATIO 10.9 6 - 26 03/19/2023 12:[address] [facility] A/G RATIO 1.2 1.0 - 2.0 RATIO 03/19/2023 12:[address] [facility] GFR ESTIMATE >90 >90 ML/MIN/1.7 3 M2 03/19/2023 12:47 PM T [facility] Comment: NOTE: eGFR is not calculated for patients <18 years of age. This is an estimated GFR calculation using the new CKD EPI creatinine equation without race and so does not require a correction factor for race. This estimated GFR should not be used for calculating drug doses. 03/19/2023 11:0 3 AM CDT us Toney Martinez MD LABORATORY Final Result [facility] [address] [facility] [place] [address], documented in this encounter Visit Diagnoses Diagnosis Annual physical exam- Primary Routine general medical examination at a health care facility Attention deficit disorder (ADD) without hyperactivity Neck pain Cervicalgia Chronic midline back pain, unspecified back location Neck pain Cervicalgia Chronic midline back pain, unspecified back location documented in this encounter Additional Health Concerns Assessment Noted Time PHQ-9 Depression Total Score: 16 01/12/ 023 1:00 PM RECRUITING MANAGER documented as of this encounter Care Teams Graphite Mill Operator Relationship Specialty Start Date End Date Toney Martinez MD [address] [facility] [address] [place] [address] PCP - General FAMILY PRACTICE 12/20/22 documented as of this encounter
--- OUTSIDE RECORDS SUMMARY | 2024-11-19 06:13 | XMS_ITS | Encounter Summary ---
Author Organization [facility] Address [address] [place] [address]. [place], [place] [address] [place] [address] Care Team Providers Care Farm Equipment Mechanic Name Role Phone Toney Mccracken MD Primary Care Provider [phone] Encounter Details Date Type Department Care Team (Latest Contact Info) Description 05/13/2023 Travel Social History Tobacco Use Types Packs/Day [...] documented as of this encounter Care Teams Farm Equipment Mechanic Relationship Specialty Start Date End Date Toney Mccracken MD [address] [address] [place] [address] PCP - General FAMILY PRACTICE 12/20/22 documented as of this encounter
--- OUTSIDE RECORDS SUMMARY | 2024-11-19 06:13 | XMS_ITS | Encounter Summary ---
Author Organization [facility] Address [address] [place] [address]. [place], [place] [address] [place] [address] Care Team Providers Care Tube Drawer Name Role Phone Toney Mccracken MD Primary Care Provider [phone] Encounter Details Date Type Department Care Team (Latest Contact Info) Description 11/08/2024 Travel Social History Tobacco Use Types Packs/Day [...] documented as of this encounter Care Teams Tube Drawer Relationship Specialty Start Date End Date Toney Mccracken MD [address] [address] PCP - General FAMILY PRACTICE 12/20/22 documented as of this encounter
--- OUTSIDE RECORDS SUMMARY | 2024-11-19 06:13 | XMS_ITS | Clinical Summary ---
Author Organization [facility] Address [address] [place] [address] Care Team Providers Care Manager Land Name Role Phone Daniel Burroughs MD Primary Care Provider [phone] Source Comments [facility],non-owned Affiliates and Associated Physician Practices is amultiple site organization consisting of ambulatory clinics and hospital sitesin [place], [place], [place]. This disclosure is being madepursuant to the Care Everywhere program and may not contain all information available regarding this patient. Last updated 18.[facility] Allergies Active Allergy Reactions Criticality Noted Date Comments Penicillins Urticaria Medium 07/05/2017 Young child Medications * Be aware that medications may not be up to date on this document. Alwaysverify current medications with the patient. Medication Sig Dispensed Refills Start Date End Date Status Cetirizine HCl (ZYRTEC PO) Active Escitalopram Oxalate (LEXAPRO PO) Active Family History Medical History Relation Name Comments Thyroid Disease Mother Grave's dise ase Relation Name Status Comments Mother Social History Tobacco Use Types Packs/Day Years Used Date Smoking Tobacco: Never Smokeless Tobacco: Never Comments:non-smoking househo ld Sex and Gender Information Value Date Recorded Sex Assigned at Not on file Gender Identity Not on file Sexual Orientation Not on file Last Filed Vital Signs Vital Sign Reading Time Taken Comments Blood Pressure 112/64 06/23/2019 12:29 PM CDT Pulse 61 06/23/2019 12:29 PM CDT Temperature 36.9 ??C (98.4 ??F) 06/23/2019 12:29 PM C DT Respiratory Rate 18 06/23/2019 12:29 PM CDT Oxygen Saturation 99% 06/23/2019 12:29 PM CDT Inhaled Oxygen Concentration - - Weight 73.5 kg (162 lb) 06/23/2019 12:29 PM CDT Height 174.5 cm (5' 8.7 ) 06/23/2019 12:29 PM CD T Body Mass Index 24.13 06/23/2019 12:29 PM CDT Plan of Treatment Health Maintenance Due Date Last Done Comments HIV SCREENING 2019 HPV VACCINE (1 - Male 3-dose series) 2019 HEPATITIS C SCREENING 11/13/2022 DEPRESSION SCREENING 11/14/2023 DTAP/TDAP/TD VACCINES (1 - Tdap) 2023 HEPATITIS B VACCINE (1 of 3 - 19+ 3-dose series) 2023 COVID-19 VACCINE (1 - 2023-2 5 season) 2024 INFLUENZA VACCINE (#1) 2024 ZOSTER VACCINE (1 of 2) 2054 HIB VACCINE Aged Out No longer eligi ble based on patient's age to complete this topic MENINGOCOCCAL VACCINE Aged Out No juvenal gerardo eligible based on patient's age to complete this topic PNEUMOCOCCAL VACCINE Aged Out No long er eligible based on patient's age to complete this topic Care Teams Manager Land Relationship Specialty Start Date End Date Daniel Burroughs MD [address] [place] [address] PCP - General Pediatrics 07/05/17
--- OUTSIDE RECORDS SUMMARY | 2024-11-19 06:13 | XMS_ITS | Encounter Summary ---
Author Organization [facility] Address [address] [place] [address]. [place], [place] [address] [place] [address] Care Team Providers Care Engineer Gas Pumping Station Name Role Phone Toney Mccracken MD Primary Care Provider [phone] Encounter Details Date Type Department Care Team (Latest Contact Info) Description 03/26/2024 Travel Social History Tobacco Use Types Packs/Day [...] documented as of this encounter Care Teams Engineer Gas Pumping Station Relationship Specialty Start Date End Date Toney Mccracken MD [address] [place] [address]'[place] [address] PCP - General FAMILY PRACTICE 12/20/22 documented as of this encounter
--- OUTSIDE RECORDS SUMMARY | 2024-11-19 06:13 | XMS_ITS | Encounter Summary ---
Author Organization [facility] Address [address] [place] [address]. [place], [place] [address] [place] [address] Care Team Providers Care Cadd Manager Name Role Phone Toney Mccracken MD Primary Care Provider [phone] Encounter Details Date Type Department Care Team (Latest Contact Info) Description 01/12/2023 Travel Social History Tobacco Use Types Packs/Day [...] Coronavirus/COVID-19? No / Unsure 01/12/2023 12:25 PM SALES SOLUTIONS REPRESENTATIVE documented as of this encounter Plan of Treatment Not on file documented as of this encounter Visit Diagnoses Not on filedocumented in this encounter Additional Health Concerns Assessment Noted Time PHQ-9 Depression Total Score: 16 023 1:00 PM SALES SOLUTIONS REPRESENTATIVE documented as of this encounter Care Teams Cadd Manager Relationship Specialty Start Date End Date Toney Mccracken MD [address] [facility] 200 [place] [address] PCP - General FAMILY PRACTICE 12/20/22 documented as of this encounter
--- OUTSIDE RECORDS SUMMARY | 2024-11-19 06:13 | XMS_ITS | Encounter Summary ---
Author Organization [facility] Address [address] [place] [address]. [place] [address] [place] [address] Care Team Providers Care Digital Associate Media Director Name Role Phone Unavailable Primary Care Provider Unavailabl e Encounter Details Date Type Department Care Team (Late st Contact Info) Description 07/05/2016 Abstract [facility] Family Medicine - [place] [address], [address] [place] [address] Toney Mccracken MD [address] [facility] 200 [place], [place] [id number] Social History Tobacco Use Types Packs/Day Years Used Date Smoking Tobacco: Never Assessed Sex and Gender Information Value Date Recorded Sex Assigned at Not on file Legal Sex Male 6:56 PM CDT Gender Identity Not on file Sexual Orientation Not on file documented as of this encounter Last Filed Vital Signs Vital Sign Reading Time Taken Comments Blood Pressure 100/60 07/05/2016 10:10 AM CDT Pulse 70 07/05/2016 10:10 AM CDT Temperature - - Respiratory Rate - - Oxygen Saturation - - Inhaled Oxygen Concentration - - Weight 39 kg (86 lb) 07/05/2016 10:10 AM CDT Height 151.1 cm (4' 11.5 ) 07/05/2016 10:10 AM C DT Body Mass Index 17.08 07/05/2016 10:10 AM CDT Body Mass Index Percentile 41.32% 07/05/2016 10: 10 AM CDT Growth Chart: CDC (Boys, 2-2 0 Years) documented in this encounter Progress Notes * Toney Mccracken MD - 07/05/2016 10:45 AM CDT Chief Complaint 1. Physician Consult 6th grade school and sports physical History of Present Illness HM, 9-12 years Male (Brief): Reji Strange presents today for routine health maintenance with his parents. General Health: The child's health since the last visit is described as good. Caregiver concerns: Caregivers deny concerns regarding nutrition and sleep. Nutrition/Elimination: Dietary supplements:. The patient does not use dietary supplements. Sleep:. No sleep issues are reported. Behavior:. No behavior issues identified. The child's temperament is described as calm, happy and independent. Health Risks: Childcare/School: Sports Participation Questions: Childhood Lead Risk: Is this child eligible for or enrolled in Medicaid, Head Start, All Kids or WIC? No Does this child have a sibling with a blood lead level of 10mcg/dL or higher? No Does this child live in or regularly visit a home built before 1977? No In the past year, has this child been exposed to repairs, repainting or renovation of a home built before 1977? No Is this child a refugee or an adoptee from any foreign country? No Has this child child ever been to [place], [place] or [place], countries (i.e. [place] or [place]), or any country where exposure to lead from certain items could have occured (for example, cosmetics, home remedies, folk medicines or glazed pottery? No Does this child live with someone who has a job or a hobby that may involve lead (for example, jewelry making, building renovation or repair, bridge construction, plumbing, furniture refinishing, or workwith automobile batteries or radiators, lead solder, leaded glass, lead shots, bullets or lead fishing sinkers)? No At any time, has this child lived near a factory where lead is used (for example, a lead smelter ora paint factory)? No Does this child reside in a high-risk ZIP code area? No Tuberculosis (TB) Screening: Child has not traveled to high risk areas in the past year. there are no household members who were born outside of the [place] or recently moved with in the past year. Child has not been in contact with someone who has or is suspected to have active TB or had a positive TB skin test The child has not had a chest x-ray or exam findings suggesting TB. Child is not at high risk (immune deficient, organ transplant, drug user, on immune suppression medication). Child does not drink or eat raw (unpasterized) milk or cheese. no TB Skin testing needed. HPI Free Text: 10 yo WAM for school physical. Review of Systems Constitutional: no chills, not feeling poorly and no fever. Head and Face: normocephalic, normal head size, normal head posture and atraumatic. Eyes: no itching of the eyes, no purulent discharge from the eyes and no eye pain. ENT: no earache and no hearing loss. Current Meds 1. No Reported Medications Recorded GUNNAR = N; Record; Last Updated By: Renuka Barker; 07/05/2016 10:11:14 AM Allergies 1. No Known Drug Allergies Recorded By: Renuka Barker; 07/05/2016 10:11:14 AM Vitals Recorded: [id number] 10:10AM Heart Rate 70 Systolic 100 Diastolic 60 O2 Saturation 98 Height 4 ft 11.5 in 2-20 Stature Percentile 70 % Weight 86 lb 2-20 Weight Percentile 51 % BMI Calculated 17.08 BMI Percentile 41 % BSA Calculated 1.3 Physical Exam Constitutional - General appearance: No acute distress, well appearing and well nourished. Head and Face - Head and face: Normocephalic, atraumatic. Palpation of the face and sinuses: Normal, no sinus tenderness. Eyes - Conjunctiva and lids: No injection, edema or discharge. Ophthalmoscopic examination: Optic discs sharp. Ears, Nose, Mouth, and Throat - External inspection of ears and nose: Normal without deformities ordischarge. Oropharynx: Moist mucosa, normal tongue and tonsils without lesions. Neck - Neck: Supple, symmetric, no masses. Thyroid: No thyromegaly. Pulmonary - Respiratory effort: Normal respiratory rate and rhythm, no increased work of breathing.Auscultation of lungs: Clear bilaterally. Cardiovascular - Auscultation of heart: Regular rate and rhythm, normal S1 and S2, no murmur. Musculoskeletal - right pes plannus. Assessment 1. Pes planus (734) (M21.40) Discussion/Summary referral for orthotics bilateral pes plannus Signatures Electronically signed by : Toney Mccracken M.D.; Jul 05 2016 10:28AM ADMINISTRATION DEAN (Author) * Toney Mccracken MD - 07/05/2016 10:45 AM CDT Reason For Visit Nurse Visit: Injection Chief Complaint 1. Physician Consult TDap and Menactra Active Problems 1. Pes planus (734) (M21.40) Current Meds 1. No Reported Medications Recorded Allergies 1. No Known Drug Allergies Vitals Signs [Data Includes: Current Encounter] Heart Rate: 70 Systolic: 100 Diastolic: 60 O2 Saturation: 98 Height: 4 ft 11.5 in 2-20 Stature Percentile: 70 % Weight: 86 lb 2-20 Weight Percentile: 51 % BMI Calculated: 17.08 BMI Percentile: 41 % BSA Calculated: 1.3 Assessment 1. Pes planus (734) (M21.40) Plan 1. Boostrix 5-2.5-18.5 Intramuscular Suspension For: Health Maintenance; Ordered By:Toney Mccracken; Effective Date:05Jul2016; Administered by: Renuka Barker: 07/05/2016 10:56:00 AM; Last Updated By: Renuka Barker; 07/05/2016 10:57:22 AM 2. Meningo (Menactra) For: Health Maintenance; Ordered By:Toney Mccracken; Effective Date:05Jul2016; Administered by: Renuka Barker: 07/05/2016 10:56:00 AM; Last Updated By: Renuka Barker; 07/05/2016 10:57:22 AM TDao given IM left upper arm and Menactra given IM right upper arm. Patient tolerated well, no reaction noted at time of visit. Signatures Electronically signed by : Renuka Barker, ; Jul 05 2016 10:58AM ADMINISTRATION DEAN (Author) documented in this encounter Plan of Treatment Not on file documented as of this encounter Visit Diagnoses Not on filedocumented in this encounter
--- OUTSIDE RECORDS SUMMARY | 2024-11-19 06:13 | XMS_ITS | Encounter Summary ---
Author Organization [facility] Address [address] [place] [address]. [place], [place] [address] [place] [address] Care Team Providers Care Field Placement Director Name Role Phone Unavailable Primary Care Provider Unavailabl e Encounter Details Date Type Department Care Team (Latest Contact Info) Description 07/06/2016 Abstract [facility] Medical Group Social History Tobacco Use Types Packs/Day Years [...]
--- OUTSIDE RECORDS SUMMARY | 2024-11-19 06:13 | XMS_ITS | Encounter Summary ---
Author Organization [facility] Address [address] [place] [address]. [place], [place] [address] [place] [address] Care Team Providers Care Production Superintendent Hydro Name Role Phone Toney Mccracken MD Primary Care Provider [phone] Encounter Details Date Type Department Care Team (Latest Contact Info) Description 06/06/2023 Travel Social History Tobacco Use Types Packs/Day [...] documented as of this encounter Care Teams Production Superintendent Hydro Relationship Specialty Start Date End Date Toney Mccracken MD [address] [place] [address]'[place] [address] PCP - General FAMILY PRACTICE 12/20/22 documented as of this encounter
--- OUTSIDE RECORDS SUMMARY | 2024-11-19 06:13 | XMS_ITS | Encounter Summary ---
Author Organization [facility] Address [address] [place] [address]. [place], [place] [address] [place] [address] Care Team Providers Care Branch Lending Manager Name Role Phone Toney Mccracken MD Primary Care Provider [phone] Encounter Details Date Type Department Care Team (Latest Contact Info) Description 03/19/2023 10:35 AM CDT Hospital Encounter [facility] [place] [place] [address] Toney Mccracken MD [address] [place] [address] Discharge Disposition: Home or Self Care (Routine [...] suspected to have Coronavirus/COVID-19? No / Unsure 03/19/2023 10:32 AM CDT documented as of this encounter Medications at Time of Discharge buPROPion XL (WELLBUTRIN XL) 300 MG 24 hr tablet 01/06/2023 3 cloNIDine (CATAPRES) 0.2 MG tabletIndications:A ttention deficit disorder (ADD) without hyperactivity Take 1 tablet (0.2 mg total) by mouth nightly as needed. 30 tablet 5 01/12/2023 3 lisdexamfetamine (VYVANSE) 30 MG capsuleIndications: Attention deficit disorder (ADD) without hyperactivity Take 1 capsule (30 mg total) by mouth every morning. 30 capsule 02/06/2023 3 documented as of this encounter Plan of Treatment Not on file documented as of this encounter Procedures Procedure Name Priority Date/Time Associated Diagnosis Comments TSH W/REFLEX Routine 03/19/2023 11:03 AM CDT Attention deficit disorder (ADD) without hyperactivity HEMOGLOBIN, GLYCOSYLATED Routine 03/19/2023 11:03 AM CDT Attention deficit disorder (ADD) without hyperactivity TRIIODOTHYRONINE TOTAL , TT-3 Routine 03/19/2023 11:03 AM CDT Attention deficit disorder (ADD) without hyperactivity COMPREHENSIVE METABOLIC PANEL Routine 03/19/2023 11:03 AM CDT Attention deficit disorder (ADD) without hyperactivity LIPID PANEL Routine 03/19/2023 11:03 AM CDT Attention deficit disorder (ADD) without hyperactivity CBC W/DIFF AUTOMATED Routine 03/19/2023 11:03 AM CDT Attention deficit disorder (ADD) without hyperactivity THYROXINE, FREE (FT4) Routine 03/19/2023 11:03 AM CDT Attention deficit disorder (ADD) without hyperactivity documented in this encounter Results * TRIIODOTHYRONINE TOTAL , TT-3 (03/19/2023 11:03 AM CDT) T3 TOTAL 136.8 86 - 192 ng/dL 03/24/2023 4:10 AM CDT [employer] MARLENE [facility]ES Comment: Test Performed by Howard Sterling [facility] [place], [address] [place], [place] Frank Cavazos M.D., Ph.D., Director of Laboratories , [facility] [id number] 03/19/2023 11:0 3 AM CDT Toney Mccracken MD LABORATORY Final Result [employer] [place] [id number] [place] [address], [place] [phone] * THYROXINE, FREE (FT4) (03/19/2023 11:03 AM CDT) FREE T4 1.06 0.76 - 1.46 NG/DL 03/19/2023 12:47 PM CDT [facility] 03/19/2023 11:0 3 AM CDT Toney Mccracken MD LABORATORY Final Result Performing Organization Address City/[facility]/ZIP Co de Phone Number [facility] [address] [place] [address], [place] [phone] * TSH W/REFLEX (03/19/2023 11:03 AM CDT) TSH 1.980 0.358 - 3.74 uIU/ML 03/19/2023 12:47 PM CDT [facility] Comment: HIGH DOSES OF BIOTIN MAY INTERFERE WITH THIS TEST RESULT. CORRELATION TO CLINICAL HISTORY AND PRESENTATION RECOMMENDED. FREE T4 NOT INDICATED 03/19/2023 11:0 3 AM CDT Toney Mccracken MD LABORATORY Final Result [facility] [address] [place] [address], * LIPID PANEL (03/19/2023 11:03 AM CDT) [facility] Signature CHOLESTEROL 126 <200 MG/DL 03/19/2023 12:47 PM CDT [facility] TRIGLYCERIDES 82 <150 MG/DL 03/19/2023 12:47 PM CDT [facility] HDL 41 >40.0 MG/DL 03/19/2023 12:47 PM CDT [facility] LDL (CALCULATED) 69 <100 MG/DL 03/19/20 12:47 PM CDT [facility] NON HDL CHOLESTEROL 85 <130 MG/DL 03/19 12:47 PM CDT [facility] CHOL/HDL RATIO 3.1 0.0 - 4.5 03/19/2023 12:47 PM CDT [facility] VLDL CALCULATION 16 5 - 55 MG/DL 03/19/2023 12:47 PM CDT [facility] LIPID INTERPRETATION 03/19/2023 12:47 PM CDT [facility] Comment: NIH CONCENSUS REPORT RECOMMENDATIONS: ?ADULT [...] 03/19/2023 11:0 3 AM CDT us Toney Mccracken MD LABORATORY Final Result Performing Organization Address City/State/[facility] Co de Phone Number [facility] [address] [place] [address], * HEMOGLOBIN, GLYCOSYLATED (03/19/2023 11:03 AM CDT) HGB A1C 5.4 <5.7 % 03/19/2023 1:54 PM CDT [facility] Comment: ADA GUIDELINES 2010 5.7 TO 6.4% INCREASED RISK OF DIABETES > OR = 6.5% CONSISTENT WITH DIABETES ESTIMATED AVG GLUCOSE 108 mg/dL 03/19/2023 1:54 PM CDT [facility] 03/19/2023 11:0 3 AM CDT us Toney Mccracken MD LABORATORY Final Result [facility] [address] [place] [address], * CBC W/DIFF AUTOMATED (03/19/2023 11:03 AM CDT) WBC 4.8 4.5 - 13.0 x10'3/uL 03/19/2023 12:21 PM CDT [facility] RBC 5.77 4.70 - 6.10 x10'6/uL 03/19/2023 12:21 PM CDT [facility] HGB 16.9 14.0 - 18.0 G/DL 03/19/2023 12:21 PM CDT [facility] HCT 49.3 43.0 - 54.0 % 03/19/2023 12:21 PM CDT [facility] MCV 85.4 80.0 - 94.0 FL 03/19/2023 12:21 PM CDT [facility] MCH 29.3 27.0 - 31.0 PG 03/19/2023 12:21 PM CDT [facility] MCHC 34.3 32.0 - 36.0 G/DL 03/19/2023 12:21 PM CDT [facility] RDW 11.9 11.5 - 14.5 % 03/19/2023 12:21 PM CDT [facility] PLT 219 130 - 400 x10'3/uL 03/19/2023 12:21 PM CDT [facility] MPV 11.4 9.3 - 12.2 FL 03/19/2023 12:21 PM CDT [facility] DIFFERENTIAL TYPE AUTOMATED DIFFERENTIAL 03/19/2023 12:21 PM CDT [facility] NEUTROPHILS % 56.2 % 03/19/2023 12:21 PM CDT [facility] LYMPHOCYTES % 33.0 % 03/19/2023 12:21 PM CDT [facility] MONOCYTES % 8.1 % 03/19/2023 12:21 PM CDT [facility] EOSINOPHILS 2.3 % 03/19/2023 12:21 PM CDT [facility] BASOPHILS 0.2 % 03/19/2023 12:21 PM CDT [facility] IMMATURE GRANS % 0.2 % 03/19/20 12:21 PM CDT [facility] ABS. NEUTROPHILS TOTAL 2.71 1.80 - 8.00 x10'3/uL 03/19/2023 12:21 PM CDT [facility] ABS. LYMPHOCYTES 1.59 1.20 - 5.20 x10'3/uL 03/19/2023 12:21 PM CDT [facility] ABS. MONOCYTES 0.39 0.30 - 0.82 x10'3/uL 03/19/2023 12:21 PM CDT [facility] ABS. EOSINOPHILS 0.11 0.04 - 0.54 x10'3/uL 03/19/2023 12:21 PM CDT [facility] ABS. BASOPHILS 0.01 0.01 - 0.08 x10'3/uL 03/19/2023 12:21 PM CDT [facility] ABS. IMMATURE GRANULOCYTES 0.01 0.00 - 0.49 x10'3/uL 03/19/2023 12:21 PM CDT [facility] 03/19/2023 11:0 3 AM CDT us Toney Mccracken MD LABORATORY Final Result [facility] [address] [place] [address], [place] [phone] * (ABNORMAL) COMPREHENSIVE METABOLIC PANEL (03/19/2023 11:03 AM CDT) [facility] GLUCOSE 81 70 - 99 MG/DL 03/19/2023 12:47 PM CDT [facility] BUN 11 7 - 18 MG/DL 03/19/2023 12:47 PM CDT [facility] CREATININE S/P/B 1.01 0.7 - 1.3 MG/DL 03/19/2023 12:47 PM CDT [facility] SODIUM S/P/B 140 136 - 145 MMOL/L 03/19/2023 12:47 PM CDT [facility] POTASSIUM S/P/B 3.5 3.5 - 5.1 MMOL/L 03/19/2023 12:47 PM CDT [facility] CHLORIDE S/P/B 109(H) 100 - 108 MMOL/L 03/19/2023 12:47 PM CDT [facility] CO2 25.5 21 - 32 MMOL/L 03/19/2023 12:47 PM CDT [facility] CALCIUM S/P/B 9.9 8.5 - 10.1 MG/DL 03/19/2023 12:47 PM CDT [facility] BILIRUBIN TOTAL S/P/B 1.7(H) 0.2 - 1.1 MG/DL 03/19/2023 12:47 PM CDT [facility] Comment: THIS ASSAY IS NOT RECOMMENDED FOR PATIENTS UNDERGOING TREATMENT WITH ELTROMBOPAG DUE TO THE POTENTIAL FOR FALSELY ELEVATED RESULTS. TOTAL PROTEIN S/P/B 8.3(H) 6.4 - 8.2 G/DL 03/19/2023 12:47 PM CDT [facility] ALBUMIN S/P/B 4.6 3.4 - 5.0 G/DL 03/19/2023 12:47 PM CDT [facility] AST 10(L) 15 - 37 U/L 03/19/2023 12:47 PM CDT [facility] ALT 22 16 - 60 U/L 03/19/2023 12:47 PM CDT [facility] ALKALINE PHOSPHATASE S/P/B 65 65 - 260 U/L 03/19/2023 12:47 PM CDT [facility] ANION GAP 5.5 5 - 15 MMOL/L 03/19/2023 12:47 PM CDT [facility] BUN CREATININE RATIO 10.9 6 - 26 03/19/2023 12:47 PM CDT [facility] A/G RATIO 1.2 1.0 - 2.0 RATIO 03/19/2023 12:47 PM CDT [facility] GFR ESTIMATE >90 >90 ML/MIN/1.7 3 M2 03/19/2023 12:47 PM CDT [facility] Comment: NOTE: eGFR is not calculated for patients <18 years of age. This is an estimated GFR calculation using the new CKD EPI creatinine equation without race and so does not require a correction factor for race. This estimated GFR should not be used for calculating drug doses. 03/19/2023 11:0 3 AM CDT us Toney Mccracken MD LABORATORY Final Result [facility] [address] [place] [address], [place] [phone] documented in this encounter Visit Diagnoses Diagnosis Attention deficit disorder (ADD) without hyperactivity documented in this encounter Additional Health Concerns Assessment Noted Time PHQ-9 Depression Total Score: 16 01/12/ 023 1:00 PM CRM MARKETING MANAGER documented as of this encounter Care Teams Branch Lending Manager Relationship Specialty Start Date End Date Toney Mccracken MD [address] [address] PCP - General FAMILY PRACTICE 12/20/22 documented as of this encounter
--- OUTSIDE RECORDS SUMMARY | 2024-11-19 06:13 | XMS_ITS | Encounter Summary ---
Author Organization [facility] Address [address] [place] [address]. [place], [place] [address] [place] [address] Care Team Providers Care Placement Specialist Name Role Phone Toney Mccracken MD Primary Care Provider [phone] Encounter Details Date Type Department Care Team (Latest Contact Info) Description 04/16/2024 Travel Social History Tobacco Use Types Packs/Day [...] documented as of this encounter Care Teams Placement Specialist Relationship Specialty Start Date End Date Toney Mccracken MD [address] [address] PCP - General FAMILY PRACTICE 12/20/22 documented as of this encounter
--- OUTSIDE RECORDS SUMMARY | 2024-11-19 06:13 | XMS_ITS | Encounter Summary ---
Author Organization [facility] Address [address] [place] [address]. [place], [place] [address] [place] [address] Care Team Providers Care Manufacturers Agent Name Role Phone Toney Martinez MD Primary Care Provider [phone] Encounter Details Date Type Department Care Team (Latest Contact Info) Description 03/19/2023 10:35 AM CDT - 03/19/2023 11:59 PM CDT Hospital Encounter [facility] Diagnostic [place] [address] Toney Martinez MD [address] [place] [id number] Discharge Disposition: Home or Self Care (Routine [...] Procedure Name Priority Date/Time Associated Diagnosis Comments XR SCOLIOSIS Routine 03/19/2023 11:33 AM CDT Chronic midline back pain, unspecified back location XR LUMB SP+FLEX+EXT MIN 4V Routine 03/19/2023 11:33 AM CDT Chronic midline back pain, unspecified back location XR CERV SP OBL+FLEX+EXT 7V Routine 03/19/2023 11:33 AM CDT Neck pain documented in this encounter Results * XR SCOLIOSIS (03/19/2023 [...] views. Ordered By: TONEY MARTINEZ Interpreted By: Rjei Orellana MD, 03/20/2023 8:09 AM Narrative 03/20/2023 [...] By: Reji Orellana MD, 03/20/2023 8:09 AM Toney Martinez MD GENERAL IMAGING Final Result documented in this encounter Visit Diagnoses Diagnosis Neck pain Cervicalgia Chronic midline back pain, unspecified back location documented in this encounter Additional Health Concerns Assessment Noted Time PHQ-9 Depression Total Score: 16 01/12/ 023 1:00 PM NUMEROLOGIST documented as of this encounter Care Teams Manufacturers Agent Relationship Specialty Start Date End Date Toney Martinez MD [address] [address] PCP - General FAMILY PRACTICE 12/20/22 documented as of this encounter
--- OUTSIDE RECORDS SUMMARY | 2024-11-19 06:13 | XMS_ITS | Encounter Summary ---
Author Organization [facility] Address [address] [place] [address]. [place], [place] [id number] [place] [id number] Care Team Providers Care Surgical Services Assistant Name Role Phone Toney Mccracken MD Primary Care Provider [phone] Encounter Details Date Type Department Care Team (Late st Contact Info) Description 03/23/2023 Orders Only [facility] Family and Sports Medicine - [place] [address] [place] [address] Toney Mccracken MD [address] [facility] [address] [place] [address] Social History Tobacco Use Types Packs/Day Years [...] AM CDT documented as of this encounter Progress Notes * Toney Mccracken MD - 03/23/2023 9:35 AM CDT Unexplained elevated Bili documented in this encounter Plan of Treatment Not on file documented as of this encounter Visit Diagnoses Diagnosis Bilirubinemia- Primary Jaundice, unspecified, not of documented in this encounter Additional Health Concerns Assessment Noted Time PHQ-9 Depression Total Score: 16 023 1:00 PM THREAD INSPECTOR documented as of this encounter Care Teams Surgical Services Assistant Relationship Specialty Start Date End Date Toney Mccracken MD [address] [address] PCP - General FAMILY PRACTICE 12/20/22 documented as of this encounter
--- OUTSIDE RECORDS SUMMARY | 2024-11-19 06:13 | XMS_ITS | Encounter Summary ---
Author Organization [facility] Address [address] [place] [address] Care Team Providers Care Fish Receiver Name Role Phone Daniel Burroughs MD Primary Care Provider [phone] Reason for Visit * Reason Comments School Physical Encounter Details Date Type Department Care Team (Late st Contact Info) Description 06/23/2019 12:20 PM CDT Office Visit [facility] AT [address] [id number] Provider, [facility] physical exam (Primary Dx) Social History Tobacco Use Types Packs/Day Years Used Date Smoking Tobacco: Never Smokeless Tobacco: Never Comments:non-smoking [facility] Sex and Gender Information Value Date Recorded [...] Mass Index 24.13 06/23/2019 12:29 PM CDT Body Mass Index Percentile 89.43% 06/23/2019 12: 29 PM CDT Growth Chart: CDC (Boys, 2-2 0 Years) documented in this encounter Patient Instructions * Patient Instructions* Helga Manuel SOCIAL PROBLEMS SPECIALIST-X RAY DEVELOPING MACHINE OPERATOR - 06/23/2019 12:43 PM CDT Images from the original note were not included. Patient Education Well Child Visit at 11 to 14 Years TAR WORKER: A well child visit is when your child sees a healthcare provider to prevent health problems. Well child visits are used to track your child's growth and development. It is also a time for you to ask questions and to get information on how to keep your child safe. Write down your questions so you remember to ask them. Your child should have regular well child visits from to 17 years. Development milestones your child may reach at 11 to 14 years: Each child develops at his or her own pace. Your child might have already reached the following milestones, or he or she may reach them later: ?? Breast development (girls), testicle and penis enlargement (boys), and armpit or pubic hair ?? Menstruation (monthly periods) in girls ?? Skin changes, such as oily skin and acne ?? Not understanding that actions may have negative effects ?? Focus on appearance and a need to be accepted by others his or her own age Help your child get the right nutrition: ?? Teach your child about a healthy meal plan by setting a good example. Your child still learns from your eating habits. Buy healthy foods for your family. Eat healthy meals together as a family as often as possible. Talk with your child about why it is important to choose healthy foods. ?? Encourage your child to eat regular meals and snacks, even if he or she is busy. Your child should eat 3 meals and 2 snacks each day to help meet his or her calorie needs. He or she should also eat a variety of healthy foods to get the nutrients he or she needs, and to maintain a healthy weight.You may need to help your child plan meals and snacks. Suggest healthy food choices that your childcan make when he or she eats out. Your child could order a chicken sandwich instead of a large burger or choose a side salad instead of [place] fries. Praise your child's good food choices whenever you can. ?? Provide a variety of fruits and vegetables. Half of your child's plate should contain fruits andvegetables. He or she should eat about 5 servings of fruits and vegetables each day. Buy fresh, canned, or dried fruit instead of fruit juice as often as possible. Offer more dark green, red, and orange vegetables. Dark green vegetables include broccoli, spinach, herrera lettuce, and cam greens. Examples of orange and red vegetables are carrots, sweet potatoes, winter squash, and red peppers. ?? Provide whole-grain foods. Half of the grains your child eats each day should be whole grains. Whole grains include brown rice, whole-wheat pasta, and whole- grain cereals and breads. ?? Provide low-fat dairy foods. Dairy foods are a good source of calcium. Your child needs 1,300 milligrams (mg) of calcium each day. Dairy foods include milk, cheese, cottage cheese, and yogurt. ?? Provide lean meats, poultry, fish, and other healthy protein foods. Other healthy protein foods include legumes (such as beans), soy foods (such as tofu), and peanut butter. Bake, broil, and grillmeat instead of frying it to reduce the amount of fat. ?? Use healthy fats to prepare your child's food. Unsaturated fat is a healthy fat. It is found in foods such as soybean, canola, olive, and sunflower oils. It is also found in soft tub margarine that is made with liquid vegetable oil. Limit unhealthy fats such as saturated fat, trans fat, and cholesterol. These are found in shortening, butter, margarine, and animal fat. ?? Help your child limit his or her intake of fat, sugar, and caffeine. Foods high in fat and sugarinclude snack foods (potato chips, candy, and other sweets), juice, fruit drinks, and soda. If yourchild eats these foods too often, he or she may eat fewer healthy foods during mealtimes. He or shemay also gain too much weight. Caffeine is found in soft drinks, energy drinks, tea, coffee, and some gutz-jtg-toshbik medicines. Your child should limit his or her intake of caffeine to 100 mg or less each day. Caffeine can cause your child to feel jittery, anxious, or dizzy. It can also cause headaches and trouble sleeping. ?? Encourage your child to talk to you or a healthcare provider about safe weight loss, if needed. Adolescents may want to follow a fad diet they see their friends or famous people following. Fad diets usually do not have all the nutrients your child needs to grow and stay healthy. Diets may also lead to eating disorders such as anorexia and bulimia. Anorexia is refusal to eat. Bulimia is binge eating followed by vomiting, using laxative medicine, not eating at all, or heavy exercise. Help your child care specialist for his or her teeth: ?? Remind your child to brush his or her teeth 2 times each day. Mouth care prevents infection, plaque, bleeding gums, mouth sores, and cavities. It also freshens breath and improves appetite. ?? Take your child to the dentist at least 2 times each year. A dentist can check for problems withyour child's teeth or gums, and provide treatments to protect his or her teeth. ?? Encourage your child to wear a mouth guard during sports. This will protect your child's teeth from injury. Make sure the mouth guard fits correctly. Ask your child's healthcare provider for more information on mouth guards. Keep your child safe: ?? Remind your child to always wear a seatbelt. Make sure everyone in your car wears a seatbelt. ?? Encourage your child to do safe and healthy activities. Encourage your child to play sports or join an after school program. ?? Store and lock all weapons. Lock ammunition in a separate place. Do not show or tell your child where you keep the mancia. Make sure all guns are unloaded before you store them. ?? Encourage your child to use safety equipment. Encourage him or her to wear helmets, protective sports gear, and life jackets. Other ways to care for your child: ?? Talk to your child about puberty. Puberty usually starts between ages 8 to 13 in girls, but it may start earlier or later. Puberty usually ends by about age 14 in girls. Puberty usually starts between ages 10 to 14 in boys, but it may start earlier or later. Puberty usually ends by about age 15 or 16 in boys. Ask your child's healthcare provider for information about how to talk to your child about puberty, if needed. ?? Encourage your child to get 1 hour of physical activity each day. Examples of physical activities include sports, running, walking, swimming, and riding bikes. The hour of physical activity does not need to be done all at once. It can be done in shorter blocks of time. Your child can fit in morephysical activity by limiting screen time. ?? Limit your child's screen time. Screen time is the amount of television, computer, smart phone, and video game time your child has each day. It is important to limit screen time. This helps your child get enough sleep, physical activity, and social interaction each day. Your child's pediatriciancan help you create a screen time plan. The daily limit is usually 1 hour for children 2 to 5 years. The daily limit is usually 2 hours for children 6 years or older. You can also set limits on the kinds of devices your child can use, and where he or she can use them. Keep the plan where your childand anyone who takes care of him or her can see it. Create a plan for each child in your family. You can also go to https://www.healthychildren.org/[place]/media/Pages/default.aspx#planview for more help creating a plan. ?? Praise your child for good behavior. Do this any time he or she does well in school or makes safe and healthy choices. ?? Monitor your child's progress at school. Go to parent-teacher conferences. Ask your child to jenaro see your child's report card. ?? Help your child solve problems and make decisions. Ask your child about any problems or concernshe or she has. Make time to listen to your child's hopes and concerns. Find ways to help your childwork through problems and make healthy decisions. ?? Help your child find healthy ways to deal with stress. Be a good example of how to handle stress. Help your child find activities that help him or her manage stress. Examples include exercising, reading, or listening to music. Encourage your child to talk to you when he or she is feeling stressed, sad, angry, hopeless, or depressed. ?? Encourage your child to create healthy relationships. Know your child's friends and their parents. Know where your child is and what he or she is doing at all times. Encourage your child to tell you if he or she thinks he or she is being bullied. Talk with your child about healthy dating relationships. Tell your child it is okay to say no and to respect when someone else says no. ?? Encourage your child not to use drugs or tobacco, or drink alcohol. Explain that these substances are dangerous and that you care about your child's health. Also explain that drugs and alcohol areillegal. ?? Be prepared to talk your child about sex. Answer your child's questions directly. Ask your child's healthcare provider where you can get more information on how to talk to your child about sex. What you need to know about your child's next well child visit: Your child's healthcare provider will tell you when to bring your child in again. The next well child visit is usually at 15 to 17 years. Your child may need vaccines at the next well child visit. Your provider will tell you which vaccines your child needs and when your child should get them. ?? Copyright [employer] 2019 Information is for End User's use only and may not be sold, redistributed or otherwise used for commercial purposes. All illustrations and images included in CareNotes?? are the copyrighted property of [employer], [employer]. or [employer] The above information is an nutrition aides teacher only. It is not intended as medical advice for individual conditions or treatments. Talk to your doctor, nurse or pharmacist before following any medical regimen to see if it is safe and effective for you. documented in this encounter Progress Notes * Helga Manuel APRN-CNP - 06/23/2019 12:39 PM CDT .Reji Strange is a .13 year old .male patient, here for: . Chief Complaint Patient presents with ??? School Physical He plans to attend [employer], freshman Patient denies any history of concussion, head injury, or seizures. Patient denies any history of chest pain, chest pain with exertion, feeling lightheaded or dizziness with exercise. Denies difficulty breathing during or after exercise. Denies history of hernia. Denies any family history of sudden cardiac or unexplained for those under age 50. Denies any family history of cardiomyopathy. Denies any family history of Marfan Syndrome. Medications reviewed. Outpatient Medications Marked as Taking for the 06/23/19 encounter (Office Visit) with Provider, [facility] Medication Sig ??? Cetirizine HCl (ZYRTEC PO) ??? Escitalopram Oxalate (LEXAPRO PO) . Allergies Allergen Reactions ??? Pcn [Penicillins] Urticaria Young child Vaccines: Reported as UTD Last Tetanus: up to date per father Past Medical History: Diagnosis Date ??? Depression ??? HSP (Henoch Schonlein purpura) ??? Seasonal allergies . Past Surgical History: Procedure Laterality Date ??? NEGATIVE SURGICAL HISTORY family history includes Thyroid Disease in his mother. Social History Tobacco Use ??? Smoking status: Never Smoker ??? Smokeless tobacco: Never Used ??? Tobacco comment: non-smoking household Substance and Sexual Activity ??? Alcohol use: Not on file ??? Drug use: Not on file ??? Sexual activity: Not on file Lifestyle ??? Physical activity: Days per week: Not on file Minutes per session: Not on file ??? Stress: Not on file Relationships ??? Social connections: Talks on phone: Not on file Gets together: Not on file Attends evangelical service: Not on file Active member of club or organization: Not on file Attends meetings of clubs or organizations: Not on file Relationship status: Not on file ??? Intimate partner violence: Fear of current or ex partner: Not on file Emotionally abused: Not on file Physically abused: Not on file Forced sexual activity: Not on file Other Topics Concern ??? Not on file Social History Narrative ??? Not on file . Social History Tobacco Use Smoking Status Never Smoker Smokeless Tobacco Never Used Tobacco Comment non-smoking household Denies use of steroids, other performance, or recreational drugs. ROS Constitutional: Negative HEENT: Negative Cardio: Negative Resp: Negative Gastro: Negative : Denies genital pain or inguinal bulge. Musculoskeletal: Negative Skin: Negative Lymphatic/Allergy: Negative Neuro: Negative Psych: Do you feel stressed out or under a lot of pressure?No Do you ever feel sad, hopeless, depressed, or anxious? No Do you feel safe at your home or residence? Yes BP 112/64 (BP SITE: LEFT ARM, BP POSITION: SITTING, BP CUFF SIZE: 11) Pulse 61 Temp 98.4 ??F (36.9 ??C) (Oral) Resp 18 Ht 1.745 m (5' 8.7 ) Wt 73.5 kg (162 lb) SpO2 99% BMI 24.13 kg/m2 Visual Acuity Screening Right eye Left eye Both eyes With correction: 20/20 20/20 20/20 Physical Exam Constitutional: Patient is oriented to person, place, and time and well- developed, well-nourished, and in no distress. Vital signs are normal. Head: Normocephalic and atraumatic. Eyes: Visual petersen normal bilaterally.Conjunctivae, EOM and lids are normal. Pupils are equal, round, and reactive to light. Right Ear: Hearing, tympanic membrane, external ear and ear canal normal. Left Ear: Hearing, tympanic membrane, external ear and ear canal normal. Nose: Nose normal. Mouth/Throat: Uvula is midline,oropharynx is clear & moist & mucous membranes are normal. Neck: Trachea normal, normal range of motion and full passive range of motion without pain. Neck supple. No JVD present. No tracheal deviation present. Cardiovascular: Normal rate, regular rhythm, S1 normal, S2 normal, intact and symmetrical distal pulses; simultaneous radial / pedal pulses. Exam reveals no gallop. No murmur heard. Detailed heart auscultation: Murmur upon standing, supine: none noted Pulmonary/Chest: Effort normal; breath sounds clear. Abdominal: Soft.No distension, tenderness, or hepatosplenomegaly. : Deferred (screening negative) Musculoskeletal: Normal range of motion of extremities.. Cervical back: Normal. Thoracic back: Normal. Lumbar back: Normal. Able to Duck Walk and single leg hop Yes Lymphadenopathy: No cervical adenopathy. Neurological: Normal motor skills, normal strength and intact II - XII cranial nerves. Gait normal. Skin: Skin is warm, dry and intact. No rash or skin lesions noted. Psychiatric: Mood, memory, affect and judgment normal. . Encounter Diagnoses Name Primary? School physical exam Yes PLAN: Permission granted to participate in highschool without restrictions - form signed and returned to patient and scanned into medical records. Reviewed health maintenance and substance abuse as appropriate. Continue to follow-up with Daniel Burroughs MD as directed. .RADHA Powell 06/23/2019 12:46 PM documented in this encounter Plan of Treatment Not on file documented as of this encounter Visit Diagnoses Diagnosis School physical exam- Primary Health examination of defined subpopulation documented in this encounter Care Teams Fish Receiver Relationship Specialty Start Date End Date Daniel Burroughs MD [address] [place] [phone] PCP - General Pediatrics 07/05/17 documented as of this encounter
--- OUTSIDE RECORDS SUMMARY | 2024-11-19 06:13 | XMS_ITS | Encounter Summary ---
Author Organization [facility] Address [address] [place] [address]. [place], [place] [id number] [place] [id number] Care Team Providers Care Tie Tamper Name Role Phone Toney Martinez MD Primary Care Provider [phone] Reason for Referral * Consultation (Routine) - Pending Review Specialty Diagnoses / Procedures Referred By Makenzie moya Referred To Contact OTOLARYNGOLOGY Diagnoses Thyroglossal duct cyst Procedures OFFICE/OUTPATIENT NEW LOW MDM 30-44 MINUTES OFFICE/OUTPT VISIT,NEW,LEVL IV OFFICE/OUTPT VISIT,NEW,LEVL V OFFICE/OUTPT VISIT,EST,LEVL III OFFICE/OUTPT VISIT,EST,LEVL IV OFFICE/OUTPT VISIT,EST,LEVL V Toney Martinez MD [address] [place] [address] Phone: tel:[phone] fax: [facility], [address] [address] Phone: tel: fax: Referral ID Status Reason Start Date Expiration Date V isits Requested Visits Authorized [id number] Pending Review 04/17/2024 05/17/2025 99 99 Reason for Visit * Reason Comments Physical Annual Physical Exam Encounter Details Date Type Department Care Team (Late st Contact Info) Description 04/16/2024 12:00 PM CDT Office Visit [facility] Family [facility] Medicine - [place] [address] [place] [address] Toney Martinez MD [address] [facility] [place] [address] Physical (Annual Physical Exam/) Social History Tobacco Use Types Packs/Day Years [...] Sign Reading Time Taken Comments Blood Pressure 130/87 04/16/2024 12:00 PM CDT Pulse 83 04/16/2024 12:00 PM CDT Temperature 36.7 ??C (98.1 ??F) 04/16/2024 12:00 PM C DT Respiratory Rate 16 04/16/2024 12:00 PM CDT Oxygen Saturation 99% 04/16/2024 12:00 PM CDT Inhaled Oxygen Concentration - - Weight 80.8 kg (178 lb 3.2 oz) 04/16/2024 12:00 PM CDT Height 175.3 cm (5' 9 ) 04/16/2024 12:00 PM CDT Body Mass Index 26.32 04/16/2024 12:00 PM CDT documented in this encounter Progress Notes * Josephine Covarrubias CMA - 04/16/2024 12:00 PM CDTAddended by: JOSEPHINE COVARRUBIAS on: 04/17/2024 09:56 AM Modules accepted: Orders * Toney Martinez MD - 04/16/2024 12:00 PM CDT Images from the original note were not included. Primary & Specialty Care [facility] Encounter Date: 04/16/2024 Reason for Visit: Annual Health Maintenance Exam Patient Care Team: Toney Martinez MD as PCP - General (FAMILY PRACTICE) History of Present Illness: Reji Strange is a 18-year-old male here for the annual exam: Doing well currently without complaint or issue and wanting to get up to date on screening. He is pleasant and cooperative. Reported Health: good Immunizations up to date: Yes annual influenza up to date his last health maintenance visit was:1 year ago Regular dental visits twice a year: Yes Vision problems: Yes uses both glasses and contacts Hearing problems: No Lifestyle: Diet: Well Balanced Diet Exercise: moderate regular exercise program Aerobics and Strength Training 5 days per week Weight Concern: No Tobacco use: No Alcohol use: No, No alcohol at all Illicit Drug use: none History reviewed. No pertinent past medical history. History reviewed. No pertinent surgical history. No family history on file. FH of colon cancer: No Had a colonoscopy: No FH of prostate cancer: No Social History Tobacco Use Smoking status: Never Passive exposure: Never Smokeless tobacco: Never Substance Use Topics Alcohol use: Never Review of patient's allergies indicates: Allergen Reactions Penicillins Hives Young child Current Outpatient Medications Medication Sig buPROPion XL (WELLBUTRIN XL) 300 MG 24 hr tablet Take 1 tablet (300 mg total) by mouth every morning. cloNIDine (CATAPRES) 0.2 MG tablet Take 1 tablet (0.2 mg total) by mouth nightly as needed. lisdexamfetamine (VYVANSE) 40 MG capsule Take 1 capsule (40 mg total) by mouth every morning. No current facility-administered medications for this visit. DEPRESSION SCREEN: Has the patient felt down, depressed, or hopeless over the past two weeks: No Has the patient felt little interest or pleasure in doing things over the past two weeks: No FUNCTIONAL ABILITY/SAFTEY SCREEN: Up & Go test unsteady or longer than 30 seconds: No Needs assistance with phone, transportation, shopping, preparing meals, housework, laundry, medications, or managing money: No Home environment has rugs in hallways, lacks grab bars in the bathroom, lacks handrails on the stairs, or has poor lighting: No Has Vincent fallen in the last year? No Review of Systems Constitutional: Negative for fever [...] Psychiatric/Behavioral: Negative for hallucinations or memory loss. Patient Care Team: Toney Martinez MD as PCP - General (FAMILY PRACTICE) Fall Risk No data to display PHQ2/9 Score Patient Health Questionnaire-2 Score: 3 Patient Health Questionnaire-9 Score: 9 Health Maintenance Topic Date Due Hepatitis C Never done Annual Physical 01/13/2024 COVID-19 Vaccine ( season) 2025 (Originally 07/15/2023) DTaP, Tdap and Td Vaccines (7 - Td or Tdap) 07/05/2026 HPV Vaccines Completed Meningococcal Vaccine Completed Pneumococcal Vaccine: Pediatrics (0 to 5 Years) and At-Risk Patients (6 to 64 Years) Completed RSV Immunizations Under 20 Months Aged Out Reviewed and updated this visit by provider: Tobacco Allergies Meds Problems Med Hx Surg Hx Fam Hx Physical Exam Vitals and nursing note reviewed. Filed Vitals: 04/16/24 1200 BP: 130/87 Pulse: 83 Resp: 16 Temp: 98.1 ??F (36.7 ??C) SpO2: 99% Weight: 80.8 kg (178 lb 3.2 oz) Height: 1.753 m (5' 9 ) BMI Readings from Last 5 Encounters: 04/16/24 26.32 kg/m?? (83%, Z= 0.97)* 04/15/23 26.14 kg/m?? (86%, Z= 1.08)* 01/21/23 28.65 kg/m?? (94%, Z= 1.58)* 01/12/23 28.94 kg/m?? (95%, Z= 1.63)* * Growth percentiles are based on CDC (Boys, 2-20 Years) data. Wt Readings from Last 5 Encounters: 04/16/24 80.8 kg (178 lb 3.2 oz) 04/15/23 80.3 kg (177 lb) 01/21/23 88 kg (194 lb) 01/12/23 88.9 kg (196 lb) Vision: 20/20 Hearing: Patient denies any problems with hearing. EKG (optional): not completed Discussion of Advance Directive (required): patient requests full code Please see the patient instructions below for screening recommendations. A copy of the recommendations was given to the patient today. Constitutional: General: Patient is not in acute distress. Appearance: Normal appearance. Patient is well-developed, Average weight and height Comments: VSS HENT: Head: Normocephalic and atraumatic. Nose: normal appearance, no lesions, breathes from nose Mouth/Throat: No oropharyngeal exudate or posterior oropharyngeal erythema. Eyes: Extraocular Movements: Extraocular movements intact. Conjunctiva/sclera: Conjunctivae normal. Cardiovascular: Rate and Rhythm: Normal rate and regular rhythm. Pulses: Normal pulses. Heart sounds: Normal S1 and S2. Normal rate and rhythm. Pulmonary: Effort: Pulmonary effort is normal. No respiratory distress. Breath sounds: Normal breath sounds. Abdominal: General: There is no distension. Musculoskeletal: General: Fluid range of motion of body joints. Comfortable moving in chair and moves easily to examtable, take the step up and sits fine. Cervical back: Normal range of motion and neck supple. No rigidity. No muscular tenderness. Skin: General: no rash appreciated in exposed skin Neurological: Mental Status: patient is alert and oriented. Psychiatric: Normal Mood and Affect. Pleasant and cooperative. Judgment normal. Lab Results Component Value Date HGBA1C 5.4 03/19/2023 CR 1.07 04/15/2023 CR 1.01 03/19/2023 GFREST >90 04/15/2023 GFREST >90 03/19/2023 TSH 1.980 03/19/2023 [id number] 136.8 03/19/2023 FT4 1.06 03/19/2023 HDL 41 03/19/2023 Diagnoses/Impression: Encounter Diagnose(s) ICD-10-CM SNOMED CT(R) 1. Attention deficit disorder (ADD) without hyperactivity F98.8 ATTENTION DEFICIT HYPERACTIVITY DISORDER, PREDOMINANTLY INATTENTIVE TYPE CBC W/DIFF AUTOMATED COMPREHENSIVE METABOLIC PANEL LIPID PANEL THYROXINE, FREE (FT4) TRIIODOTHYRONINE TOTAL , TT-3 TSH W/REFLEX VITAMIN D, 25 OH HEPATITIS C ANTIBODY THYROID PEROXIDASE ANTIBODY lisdexamfetamine (VYVANSE) 40 MG capsule 2. Neck pain M54.2 NECK PAIN CBC W/DIFF AUTOMATED COMPREHENSIVE METABOLIC PANEL LIPID PANEL THYROXINE, FREE (FT4) TRIIODOTHYRONINE TOTAL , TT-3 TSH W/REFLEX VITAMIN D, 25 OH HEPATITIS C ANTIBODY THYROID PEROXIDASE ANTIBODY 3. 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 Annual physical exam Z00.00 PATIENT ENCOUNTER STATUS CBC W/DIFF AUTOMATED COMPREHENSIVE METABOLIC PANEL LIPID PANEL THYROXINE, FREE (FT4) TRIIODOTHYRONINE TOTAL , TT-3 TSH W/REFLEX VITAMIN D, 25 OH HEPATITIS C ANTIBODY THYROID PEROXIDASE ANTIBODY 5. Encounter for wellness examination in adult Z00.00 PATIENT ENCOUNTER STATUS Recommendations and Plan: 1. Attention deficit disorder (ADD) without hyperactivity Reji Strange is a 18-year-old male will start/continue his current medications. Renewal given as per Style on Screen. He will follow-up in 3 months, sooner if any problems. Will have frequent check-ups. Effect of medication likely be seen within days. You should also consider counseling to talk through issues -- reviewed resources and given handout of local recommended counselors. Encouraged f/u in clinic in 6 Month(s). Review the rationale for treatment duration of greater than 6 months after symptoms are completely controlled. Counselled that once decision to stop the medication is reached, it will need to be slowly titrated off. Patient understands these risks and wants to continue medications. - CBC W/DIFF AUTOMATED; Future - COMPREHENSIVE METABOLIC PANEL; Future - LIPID PANEL; Future - THYROXINE, FREE (FT4); Future - TRIIODOTHYRONINE TOTAL , TT-3; Future - TSH W/REFLEX; Future - VITAMIN D, 25 OH; Future - HEPATITIS C ANTIBODY; Future - THYROID PEROXIDASE ANTIBODY; Future - lisdexamfetamine (VYVANSE) 40 MG capsule; Take 1 capsule (40 mg total) by mouth every morning. Patient may have either generic or brand Dispense: 30 capsule; Refill: 0 2. Neck pain 3. Thyroglossal duct cyst See above for labs, imaging and medications orders. After carefull analysis of presenting symptoms,exam results and co morbidities, we decided on the current plan of care per [facility]. I Discussed Medications and/or therapeutic measures in details. Explained the rational of diagnosis and treatment. 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 - CBC W/DIFF AUTOMATED; Future - COMPREHENSIVE METABOLIC PANEL; Future - LIPID PANEL; Future - THYROXINE, FREE (FT4); Future - TRIIODOTHYRONINE TOTAL , TT-3; Future - TSH W/REFLEX; Future - VITAMIN D, 25 OH; Future - HEPATITIS C ANTIBODY; Future - THYROID PEROXIDASE ANTIBODY; Future 4. Annual physical exam 5. Encounter for wellness examination in adult - CBC W/DIFF AUTOMATED; Future - COMPREHENSIVE METABOLIC PANEL; Future - LIPID PANEL; Future - THYROXINE, FREE (FT4); Future - TRIIODOTHYRONINE TOTAL , TT-3; Future - TSH W/REFLEX; Future - VITAMIN D, 25 OH; Future - HEPATITIS C ANTIBODY; Future - THYROID PEROXIDASE ANTIBODY; Future Impression: Patient doing well. Reviewed with the patient, BMI, blood pressure, diet, exercise and encouraged healthy lifestyle choices. Screened for substance use, risk factors for STI???s, diet and exercise, habits, and symptoms of depression. Emphasized normal blood pressure of less than 140/90 and lipid and diabetes screening for men Olderthan 35 or for men 20 to 34 years old with risk factors. Recommended [place] screening for AAA for all men 65 to 75 who have ever smoked. Recommended prostate screening. Colon screening starting at age 45. Recommended preventive immunization according to age per ACIP guidelines. . return for routine annual checkups Orders Placed This Encounter CBC W/DIFF AUTOMATED COMPREHENSIVE METABOLIC PANEL LIPID PANEL THYROXINE, FREE (FT4) TRIIODOTHYRONINE TOTAL , TT-3 TSH W/REFLEX VITAMIN D, 25 OH HEPATITIS C ANTIBODY THYROID PEROXIDASE ANTIBODY lisdexamfetamine (VYVANSE) 40 MG capsule TONEY MARTINEZ MD 04/16/2024 documented in this encounter Plan of Treatment Scheduled Referrals Name Type Priority Associated Diagnoses Orde r Schedule Ambulatory referral to ENT Referral Routine Thyroglossal duct cyst Ordered: 04/17/2024 documented as of this encounter Results * THYROID PEROXIDASE ANTIBODY (04/16/2024 1:09 PM CDT) [facility] THYROID PEROXIDASE MICROSOMAL AB <4 IU/ML 04/17/2024 2:07 PM CDT [facility] Comment: NEGATIVE: < 25 IU/ML EQUIVOCAL: 25 to 35 IU/ML POSITIVE: > 35 IU/ML 04/16/2024 1:09 PM CDT Toney Martinez MD LABORATORY Final Result Performing Organization Address [facility] Co de Phone Number [facility] [address] [place] [address], [phone] * HEPATITIS C ANTIBODY (04/16/2024 1:09 PM CDT) [facility] HEPATITIS C AB NON-REACTI VE NON-REACT BECKY 04/16/2024 9:55 PM CDT [facility] Comment: ANTIBODIES TO HCV NOT DETECTED. DOES NOT EXCLUDE THE POSSIBILITY OF EXPOSURE TO HCV. 04/16/2024 1:09 PM CDT Toney Martinez MD LABORATORY Final Result Performing Organization Address [facility] Co de Phone Number [facility] [address] [place] [address], [id number] * (ABNORMAL) VITAMIN D, 25 OH (04/16/2024 1:09 PM CDT) [facility] VITAMIN D 25 HYDROXY TOTAL S/P/B 23.7(L) 30 - 100 NG/ML 04/17/2024 1:16 PM CDT [facility] Comment: ? DEFICIENT ??<20 ?INSUFFICIENT 20-30 ?SUFFICIENT 30-100 04/16/2024 1:09 PM CDT Toney Martinez MD LABORATORY Final Result Performing Organization Address [facility] Co de Phone Number [facility] [address] [place] [address], [place] [phone] * TSH W/REFLEX (04/16/2024 1:09 PM CDT) TSH 2.644 0.516 - 4.130 uIU/ML 04/17/2024 1:16 PM CDT [facility] 04/16/2024 1:09 PM CDT Toney Martinez MD LABORATORY Final Result Performing Organization Address [facility] de Phone Number [address] [address], [place] [phone] * THYROXINE, FREE (FT4) (04/16/2024 1:09 PM CDT) FREE T4 0.96 0.78 - 1.34 NG/DL 04/17/2024 1:16 PM CDT [facility] 04/16/2024 1:09 PM CDT Toney Martinez MD LABORATORY Final Result Performing Organization Address [facility] Co de Phone Number [address] [address], * LIPID PANEL (04/16/2024 1:09 PM CDT) CHOLESTEROL 151 <200 MG/DL 04/17/2024 1:16 PM CDT [facility] TRIGLYCERIDES 61 <150 MG/DL 04/17/2024 1:16 PM CDT [facility] HDL 58 >40 MG/DL 04/17/2024 1:16 PM CDT [facility] LDL-C 81 <100 MG/DL 04/17/2024 1:16 PM CDT [facility] VLDL CALCULATION 12 5 - 28 MG/DL 04/17/2024 1:16 PM CDT [facility] CHOL/HDL RATIO 2.6 0.0 - 4.0 04/17/2024 1:16 PM CDT [facility] LDL/HDL 1.4 0.41 - 2.13 04/17/2024 1:16 PM CDT [facility] NON HDL CHOLESTEROL 93 <140 MG/DL 04/17/2024 1:16 PM CDT [facility] 04/16/2024 1:09 PM CDT us Toney Martinez MD LABORATORY Final Result [facility] [address] [place] [address], * (ABNORMAL) COMPREHENSIVE METABOLIC PANEL (04/16/2024 1:09 PM CDT) [facility] SODIUM S/P/B 143 136 - 145 MMOL/L 04/17/2024 1:16 PM CDT [facility] POTASSIUM S/P/B 4.2 3.5 - 5.1 MMOL/L 04/17/2024 1:16 PM CDT [facility] CHLORIDE S/P/B 104 98 - 107 MMOL/L 04/17/2024 1:16 PM CDT [facility] CO2 27.7 21 - 32 MMOL/L 04/17/2024 1:16 PM CDT [facility] GLUCOSE 50(L) 70 - 99 MG/DL 04/17/2024 1:16 PM CDT [facility] Comment:RESULT VERIFIED BUN 14 7 - 18 MG/DL 04/17/2024 1:16 PM CDT [facility] CREATININE S/P/B 0.80 0.70 - 1.30 MG/DL 04/17/2024 1:16 PM T [facility] CALCIUM S/P/B 9.6 8.4 - 10.5 MG/DL 04/17/2024 1:16 PM CDT [facility] BILIRUBIN TOTAL S/P/B 1.3(H) 0.2 - 1.0 MG/DL 04/17/2024 1:16 PM T [facility] ALKALINE PHOSPHATASE S/P/B 62 45 - 115 U/L 04/17/2024 1:16 PM T [facility] AST 10(L) 15 - 37 U/L 04/17/2024 1:16 PM T [facility] ALT 25 16 - 63 U/L 04/17/2024 1:16 PM CDT [facility] TOTAL PROTEIN S/P/B 8.1 6.4 - 8.2 G/DL 04/17/2024 1:16 PM CDT [facility] ALBUMIN S/P/B 4.8 3.4 - 5.0 G/DL 04/17/2024 1:16 PM CDT [facility] ANION GAP 11.3 5 - 15 MMOL/L 04/17/2024 1:16 PM CDT [facility] Comment:REFERENCE RANGE NOT ESTABLISHED OSMOLALITY (CALC) 294 MOSM/KG 024 1:16 PM CDT [facility] Comment:REFERENCE RANGE NOT ESTABLISHED GFR ESTIMATE >90 >90 ML/MIN/1. 73 M2 04/17/2024 1:16 PM T [facility] GFR NOTES GFR REFERENCE S: 04/17/2024 1:16 PM T [facility] Comment: THE ESTIMATED GFR IS CALCULATED USING [...] ml/min/1.73 m2 04/16/2024 1:09 PM CDT Toney Martinez MD LABORATORY Final Result [facility] [address] [place] [address], * (ABNORMAL) CBC W/DIFF AUTOMATED (04/16/2024 1:09 PM CDT) WBC 4.18 4.00 - 10.80 x10'3/uL 04/16/2024 8:21 PM CDT [facility] RBC 5.00 4.50 - 6.10 x10'6/uL 04/16/2024 8:21 PM CDT [facility] HGB 14.7 13.0 - 18.0 G/DL 04/16/2024 8:21 PM CDT [facility] HCT 44.1 37.0 - 52.0 % 04/16/2024 8:21 PM CDT [facility] MCV 88.2 78.0 - 100.0 FL 04/16/2024 8:21 PM CDT [facility] MCH 29.4 27.0 - 31.0 PG 04/16/2024 8:21 PM CDT [facility] MCHC 33.3 33.0 - 36.0 G/DL 04/16/2024 8:21 PM CDT -[facility] RDW 11.6 11.5 - 14.5 % 04/16/2024 8:21 PM CDT -[facility] PLT 202 150 - 350 x10'3/uL 04/16/2024 8:21 PM CDT -[facility] MPV 11.5(H) 7.4 - 10.4 FL 04/16/2024 8:21 PM CDT -[facility] DIFFERENTIAL TYPE AUTOMATED DIFFERENTIAL 04/16/2024 8:21 PM CDT [facility] NEUTROPHILS % 51.6 % 04/16/2024 8:21 PM CDT [facility] LYMPHOCYTES % 38.0 % 04/16/2024 8:21 PM CDT [facility] MONOCYTES % 8.6 % 04/16/2024 8:21 PM CDT -[facility] EOSINOPHILS % 1.4 % 04/16/2024 8:21 PM CDT [facility] BASOPHILS % 0.2 % 04/16/2024 8:21 PM CDT [facility] IMMATURE GRANS % 0.2 % 04/16/2024 8:21 PM CDT [facility] ABS. NEUTROPHILS 2.15 1.60 - 8.30 x10'3/uL 04/16/2024 8:21 PM CDT [facility] ABS. LYMPHOCYTES 1.59 0.80 - 4.70 x10'3/uL 04/16/2024 8:21 PM CDT [facility] ABS. MONOCYTES 0.36 0.00 - 1.50 x10'3/uL 04/16/2024 8:21 PM CDT [facility] ABS. EOSINOPHILS 0.06 0.00 - 0.40 x10'3/uL 04/16/2024 8:21 PM CDT [facility] ABS. BASOPHILS 0.01 0.00 - 0.20 x10'3/uL 04/16/2024 8:21 PM CDT [facility] ABS. IMMATURE GRANULOCYTES 0.01 0.00 - 0.03 x10'3/uL 04/16/2024 8:21 PM CDT [facility] 04/16/2024 1:09 PM CDT Toney Martinez MD LABORATORY Final Result Performing Organization Address City/[facility]/ZIP Co de Phone Number [facility] [address] [place] [address], [place] [phone] * TRIIODOTHYRONINE TOTAL , TT-3 (04/16/2024 1:08 PM CDT) T3 TOTAL 105 86 - 192 NG/DL 04/16/2024 9:25 PM CDT [facility] 04/16/2024 1:08 PM CDT Toney Martinez MD LABORATORY Final Result Performing Organization Address [facility]/ZIP Co de Phone Number [facility] [address] [place] [address], [place] [phone] documented in this encounter Visit Diagnoses Diagnosis Attention deficit disorder (ADD) without hyperactivity- Primary Neck pain Cervicalgia 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
--- OUTSIDE RECORDS SUMMARY | 2024-11-19 06:13 | XMS_ITS | Patient Health Summary ---
Author Organization [facility] Address [address] [place] [address] Care Team Providers Care Compensation Director Name Role Phone Daniel Burroughs MD Primary Care Provider [phone] Note from [facility],non-owned Affiliates and Associated Physician Practices is amultiple site organization consisting of ambulatory clinics and hospital sitesin [place], [place], [place] and [place]. This disclosure is being madepursuant to the Care Everywhere program and may not contain all information available regarding this patient. Last updated 18.[facility] Allergies * Penicillins(Urticaria) -Medium Criticality Medications * Be aware that medications may not be up to date on this document. Alwaysverify current medications with the patient. * Cetirizine HCl (ZYRTEC PO) * Escitalopram Oxalate (LEXAPRO PO) Social History Tobacco Use Types Packs/Day Years [...] Mass Index 24.13 06/23/2019 12:29 PM CDT Care Teams Compensation Director Relationship Specialty Start Date End Date Daniel Burroughs MD [address] [place] [id number] PCP - General Pediatrics 07/05/17
--- OUTSIDE RECORDS SUMMARY | 2024-11-19 06:13 | XMS_ITS | Encounter Summary ---
Author Organization [facility] Address [address] [place] [address]. [place], [place] [id number] [place] [address] Care Team Providers Care Merchandise Deliverer Name Role Phone Toney Mccracken MD Primary Care Provider [phone] Encounter Details Date Type Department Care Team (Latest Contact Info) Description 01/21/2023 Travel Social History Tobacco Use Types Packs/Day [...] Coronavirus/COVID-19? 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
--- OUTSIDE RECORDS SUMMARY | 2024-11-19 06:13 | XMS_ITS | Encounter Summary ---
Author Organization [facility] Address [address] [place] [address]. [place], [place] [id number] [place] [id number] Care Team Providers Care Forklift Picker Name Role Phone Toney Martinez MD Primary Care Provider [phone] Reason for Referral * Imaging (Routine) - Closed Specialty Diagnoses / Procedures Referred By Makenzie moya Referred To Contact RADIOLOGY Diagnoses Hyperbilirubinemia Procedures US ABD LIMITED Toney Martinez MD [address] [address] Phone: tel:[phone] fax: Referral ID Status Reason Start Date Expiration Date Visits Re quested Visits Authorized [id number] Closed 04/16/2023 04/16/2024 1 1 Reason for Visit * Imaging (Routine) - Closed Specialty Diagnoses / Procedures Referred By Makenzie moya Referred To Contact RADIOLOGY Diagnoses Hyperbilirubinemia Procedures US ABD LIMITED Toney Martinez MD [address] [place] [address] Phone: tel:[phone] fax: Referral ID Status Reason Start Date Expiration Date Visits Re quested Visits Authorized [id number] Closed 04/16/2023 04/16/2024 1 1 Encounter Details Date Type Department Care Team (Latest Contact Info) Description 06/06/2023 2:46 PM CDT - 06/06/2023 11:59 PM CDT Hospital Encounter [place] [place] [address] Toney Martinez MD [address] [facility] [address] [place] [address] Discharge Disposition: Home or Self Care (Routine [...] Name Priority Date/Time Associated Diagnosis Comments US ABD LIMITED Routine 06/06/2023 3:25 PM CDT Hyperbilirubinemia documented in this encounter Results * US ABD LIMITED (06/06/2023 3:25 PM CDT) Anatomical Region Laterality Modality Abdomen Ultrasound 06/06/2023 10:0 3 PM CDT Impressions 06/07/2023 3:08 AM CDT IMPRESSION: 1. ??Mild diffuse hepatic steatosis. 2. ??Otherwise, unremarkable limited abdominal sonogram. Referred By: TONEY MARTINEZ Interpreted By: Owen Covarrubias MD, 06/06/2023 [...] sign was reported as negative by the learning support resource room teacher. Common bile duct is within normal limits, [...] sign was reported as negative by the learning support resource room teacher. Common bile duct is within normal limits, [...] Otherwise, unremarkable limited abdominal sonogram. Referred By: TONEY MARTINEZ Interpreted By: Owen Covarrubias MD, 06/06/2023 10:03 PM us Toney Matrinez MD ULTRASOUND Final Result documented in this encounter Visit Diagnoses Diagnosis Hyperbilirubinemia Jaundice, unspecified, not of documented in this encounter Additional Health Concerns Assessment Noted Time PHQ-9 Depression Total Score: 4 04/15/20 9:03 AM CDT documented as of this encounter Care Teams Forklift Picker Relationship Specialty Start Date End Date Toney Martinez MD [address] [address] PCP - General FAMILY PRACTICE 12/20/22 documented as of this encounter
--- OUTSIDE RECORDS SUMMARY | 2024-11-19 06:13 | XMS_ITS | Referral Summary ---
Author Organization [facility] Address [address] [facility] [place] [address] Care Team Providers Care Metallurgy Teacher Name Role Phone Daniel Burroughs MD Primary Care Provider [phone] Source Comments [facility],non-owned Affiliates and Associated Physician Practices is amultiple site organization consisting of ambulatory clinics and hospital sitesin [place], [place], [place] and [place]. This disclosure is being madepursuant to the Care Everywhere program and may not contain all information available regarding this patient. Last updated 18.[facility] Allergies Active Allergy Reactions Criticality Noted Date Comments Penicillins Urticaria Medium 07/05/2017 Young child Medications * Be aware that medications may not be up to date on this document. Alwaysverify current medications with the patient. Medication Sig Dispensed Refills Start Date End Date Status Cetirizine HCl (ZYRTEC PO) Active Escitalopram Oxalate (LEXAPRO PO) Active Social History Tobacco Use Types Packs/Day Years [...] 06/23/2019 12:29 PM CDT Plan of Treatment Not on file Care Teams Metallurgy Teacher Relationship Specialty Start Date End Date Daniel Burroughs MD [address] [place] [phone] PCP - General Pediatrics 07/05/17
--- OUTSIDE RECORDS SUMMARY | 2024-11-19 06:13 | XMS_ITS | Encounter Summary ---
Author Organization [facility] Address [address] [place] [address]. 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
== END 2024-11-12 06:38 | disposition home or self-care (01) ==
PROVIDERS: PCP Family Medicine Sports Medicine; Visit Provider Otolaryngology
DX: Q89.2 Congenital malformations of other endocrine glands (principal)
CPT/HCPCS: 70491; Q9967